=== PATIENT | female | born 1945 | race Caucasian/White ===

== ENCOUNTER → 2017-01-13 | Outpatient (CLI) | payer MEDICARE, BC ==
--- NOTE | 2017-01-13 13:55 | EST ---
DATE OF SERVICE: 01/13/17 AGE: 71Y SEX: F HT: 66" WT: 132 lbs. Protocol Skinny: X Other: Stage: 1 Dur. of Exercise: 2:59 *Heart Rate Blood Pressure *Rest: 76 Rest: 162/106 * *Max. Achieved: 139 Maximum BP: 191/77 85% PMHR: 125 100% PMHR: 147 *METS: 4.2 INDICATIONS: Abnormal EKG. MEDICATIONS: Vitamin D, Synthroid, ASA. Mrs. Sheppard is a 71-year-old female with history of about hypothyroidism, and has been having some chest discomfort. Patient was sent here for cardiac evaluation. Baseline EKG showed sinus rhythm with normal PA interval and QRS duration. Blood pressure at rest is 160/106 with pulse rate of 76. Patient walked on the Skinny protocol for about 3 minutes achieving a maximum heart rate of 139 with a blood pressure of 190/77. EKGs taken during and after the exercise did not reveal any significant changes from the baseline. Occasional PVCs were noted. FINAL IMPRESSION: 1. Limited exercise capacity. 2. Negative stress test at the level of exercise that patient achieved. 3. Patient did not complain of any chest pain or shortness of breath.
== END | disposition home or self-care (01) ==
LOC: RADNMMAIN 10:30
PROVIDERS: ATTEND Internal Medicine Geriatric Medicine
DX: R94.31 Abnormal electrocardiogram [ECG] [EKG] (principal)
CPT/HCPCS: 93017

== ENCOUNTER → 2017-02-04 | Outpatient (CLI) | payer MEDICARE, BC ==
--- NOTE | 2017-02-05 09:30 | MM ---
Reason for exam: screening (asymptomatic). Last mammogram was performed 1 year and 1 month ago. History: Patient is postmenopausal. Family history of breast cancer in maternal aunt at age 70. Excisional biopsy of the left breast, September 23, 2006. Cancelled Left Mammotome of the left breast, September 22, 2006. Taking estrogen for 16 years beginning at age 45. Physical Findings: A clinical breast exam by your physician is recommended on an annual basis and results should be correlated with mammographic findings. MG 3D Screening Mammo W/Cad Bilateral CC and MLO view(s) were taken. Prior study comparison: January 17, 2016, bilateral MG 3d diag mammo w/cad DARY. January 24, 2015, bilateral MG screening mammo w CAD. The breast tissue is heterogeneously dense. This may lower the sensitivity of mammography. Finding: There are typically benign vascular calcifications. There is no discrete abnormality. No significant changes in finding since January 17, 2016 and January 24, 2015. ASSESSMENT: Benign, BI-RAD 2 RECOMMENDATION: Routine screening mammogram of both breasts in 1 year.
== END | disposition home or self-care (01) ==
LOC: RADMAMWWP 12:58
PROVIDERS: ATTEND Obstetrics & Gynecology
DX: Z12.31 Encounter for screening mammogram for malignant neoplasm of breast (principal)
CPT/HCPCS: 77063; G0202

== ENCOUNTER → 2017-09-10 | Outpatient (CLI) | payer MEDICARE, BC ==
--- NOTE | 2017-09-10 15:30 | XR ---
EXAMINATION TYPE: XR chest 2V DATE OF EXAM: 09/10/2017 COMPARISON: NONE HISTORY: Shortness of breath TECHNIQUE: Frontal and lateral views of the chest are obtained. FINDINGS: Scattered senescent parenchymal changes noted. Hyperinflation compatible with COPD. No evidence for infiltrate. No evidence for atelectasis. Heart size is stable. Mediastinal structures are stable and grossly unremarkable. No evidence for hilar prominence. Degenerative changes dorsal spine. IMPRESSION: 1. No evidence for acute pulmonary disease.
== END | disposition home or self-care (01) ==
LOC: RADXRMAIN 15:07
PROVIDERS: ATTEND Internal Medicine Geriatric Medicine
DX: R05 Cough (principal)
CPT/HCPCS: 71046

== ENCOUNTER → 2018-02-05 | Outpatient (CLI) | payer MEDICARE, BC ==
--- NOTE | 2018-02-09 12:54 | MM ---
Reason for exam: screening (asymptomatic). Last mammogram was performed 1 year ago. History: Patient is postmenopausal. Family history of breast cancer in maternal aunt at age 70 and breast cancer in daughter at age 51. Excisional biopsy of the left breast, September 23, 2006. Cancelled Left Mammotome of the left breast, September 22, 2006. Took estrogen for 16 years beginning at age 45. Physical Findings: A clinical breast exam by your physician is recommended on an annual basis and results should be correlated with mammographic findings. MG 3D Screening Mammo W/Cad Bilateral CC and MLO view(s) were taken. Prior study comparison: February 04, 2017, bilateral MG 3d screening mammo w/cad. January 17, 2016, bilateral MG 3d diag mammo w/cad DARY. There are scattered fibroglandular densities. No significant changes when compared with prior studies. ASSESSMENT: Benign, BI-RAD 2 RECOMMENDATION: Routine screening mammogram of both breasts in 1 year.
== END | disposition home or self-care (01) ==
LOC: RADMAMWWP 10:52
PROVIDERS: ATTEND Surgery
DX: Z12.31 Encounter for screening mammogram for malignant neoplasm of breast (principal)
CPT/HCPCS: 77063; 77067

== ENCOUNTER → 2019-03-15 | Outpatient (CLI) | payer MEDICARE, BC ==
--- NOTE | 2019-03-16 09:06 | MM ---
Reason for exam: screening (asymptomatic). Last mammogram was performed 1 year and 1 month ago. History: Patient is postmenopausal. Family history of breast cancer in maternal aunt at age 70 and breast cancer in daughter at age 51. Excisional biopsy of the left breast, September 23, 2006. Cancelled Left Mammotome of the left breast, September 22, 2006. Took estrogen for 16 years beginning at age 45. Physical Findings: A clinical breast exam by your physician is recommended on an annual basis and results should be correlated with mammographic findings. MG 3D Screening Mammo W/Cad Bilateral CC and MLO view(s) were taken. Prior study comparison: February 05, 2018, bilateral MG 3d screening mammo w/cad. February 04, 2017, bilateral MG 3d screening mammo w/cad. There are scattered fibroglandular densities. No significant changes when compared with prior studies. ASSESSMENT: Benign, BI-RAD 2 RECOMMENDATION: Routine screening mammogram of both breasts in 1 year.
== END | disposition home or self-care (01) ==
LOC: RADMAMWWP 14:20
PROVIDERS: ATTEND Internal Medicine Geriatric Medicine
DX: Z12.31 Encounter for screening mammogram for malignant neoplasm of breast (principal)
CPT/HCPCS: 77063; 77067

== ENCOUNTER → 2020-04-28 | Outpatient (CLI) | payer MEDICARE, BC ==
--- NOTE | 2020-05-02 07:21 | MM ---
Reason for exam: screening (asymptomatic). Last mammogram was performed 1 year and 1 month ago. History: Patient is postmenopausal. Family history of breast cancer in maternal aunt at age 70 and breast cancer in daughter at age 51. Excisional biopsy of the left breast, September 23, 2006. Cancelled Left Mammotome of the left breast, September 22, 2006. Took estrogen for 16 years beginning at age 45. Physical Findings: A clinical breast exam by your physician is recommended on an annual basis and results should be correlated with mammographic findings. MG 3D Screening Mammo W/Cad Bilateral CC and MLO view(s) were taken. Prior study comparison: March 15, 2019, bilateral MG 3d screening mammo w/cad. February 05, 2018, bilateral MG 3d screening mammo w/cad. There are scattered fibroglandular densities. Benign appearing bilateral calcifications. No significant changes when compared with prior studies. ASSESSMENT: Benign, BI-RAD 2 RECOMMENDATION: Routine screening mammogram of both breasts in 1 year.
== END | disposition home or self-care (01) ==
LOC: RADMAMWWP 13:40
PROVIDERS: ATTEND Internal Medicine Geriatric Medicine
DX: Z12.31 Encounter for screening mammogram for malignant neoplasm of breast (principal)
CPT/HCPCS: 77063; 77067

== ENCOUNTER → 2021-05-09 | Outpatient (CLI) | payer MEDICARE, BC ==
--- NOTE | 2021-05-11 14:15 | MM ---
Reason for exam: screening (asymptomatic). Last mammogram was performed 1 year ago. History: Patient is postmenopausal. Family history of breast cancer in maternal aunt at age 70 and breast cancer in daughter at age 51. Excisional biopsy of the left breast, September 23, 2006. Cancelled Left Mammotome of the left breast, September 22, 2006. Took estrogen for 16 years beginning at age 45. Physical Findings: A clinical breast exam by your physician is recommended on an annual basis and results should be correlated with mammographic findings. MG 3D Screening Mammo W/Cad Bilateral CC and MLO view(s) were taken. Prior study comparison: April 28, 2020, bilateral MG 3d screening mammo w/cad. March 15, 2019, bilateral MG 3d screening mammo w/cad. The breast tissue is heterogeneously dense. This may lower the sensitivity of mammography. No significant changes when compared with prior studies. ASSESSMENT: Negative, BI-RAD 1 RECOMMENDATION: Routine screening mammogram of both breasts in 1 year.
== END | disposition home or self-care (01) ==
LOC: RADMAMWWP 13:38
PROVIDERS: ATTEND Internal Medicine Geriatric Medicine
DX: Z12.31 Encounter for screening mammogram for malignant neoplasm of breast (principal); Z80.3 Family history of malignant neoplasm of breast
CPT/HCPCS: 77063; 77067

== ENCOUNTER 2021-05-21 08:01 | Day surgery (SDC) | payer MEDICARE, BC ==
[~2021-05-21 08:01] MED LIST: HEPARIN SODIUM,PORCINE/PF 5,000 UNIT/0.5 ML SYRINGE SQ PRN
[2021-05-21] MEDS ORDERED: MIDAZOLAM 2 MG/2 ML VIAL IV PRN (08:03)
[2021-05-21] MEDS ORDERED: ONDANSETRON 4 MG/2 ML VIAL IVP ONE (08:03)
[2021-05-21] MEDS ORDERED: HYDROmorphone 0.5 MG/0.5 ML SYRINGE IVP PRN ×2 (08:03→11:25)
[2021-05-21] MEDS ORDERED: DEXAMETHASONE SOD PHOSPHATE 4 MG/ML 1 ML VIAL IV ONE (08:03)
[2021-05-21] MEDS: LACTATED RINGERS 1,000 ML IV SCH (08:40)
[2021-05-21 08:55] LABS: HCT 39.4 % (34.0-46.0); HGB 13.4 gm/dL (11.4-16.0); MCHC 33.9 g/dL (31.0-37.0); MCV 82.4 fL (80.0-100.0); Mean Platelet Volume 7.4; Platelet Count 185 k/uL (150-450); RBC 4.78 m/uL (3.80-5.40); RDW 13.2 % (11.5-15.5); WBC 4.7 k/uL (3.8-10.6)
[2021-05-21] MEDS ORDERED: MIDAZOLAM 2 MG/2 ML VIAL IVP ONE (09:03)
--- NOTE | 2021-05-21 09:35 | P.GSHP ---
History of Present Illness H&P Date: 05/21/21 Chief Complaint: Bilateral groin hernia 75-year-old female presented to the office 2 months ago with complaints of a bulge left groin. Present for the last 4-6 months. Also noticed recently a bulge in the right groin. Mild discomfort on the left, minimally symptomatic on the right. Left side since last seen has gotten slightly larger. No nausea or vomiting. No change in bowel habits. No previous hernias. Past Medical History Past Medical History: Thyroid Disorder History of Any Multi-Drug Resistant Organisms: None Reported Past Surgical History: Breast Surgery, Hysterectomy, Orthopedic Surgery Additional Past Surgical History / Comment(s): BREAST BIOPSY, CATARACT SURGERY,BUNIONECTOMY RIGHT FOOT, oral surg. Past Anesthesia/Blood Transfusion Reactions: No Reported Reaction Smoking Status: Never smoker - Past Family History Mother Family Medical History: CVA/TIA, Deep Vein Thrombosis (DVT) Medications and Allergies Home Medications Medication Instructions Recorded Confirmed Type Aspirin 325 mg PO DAILY 05/05/15 05/16/21 History Levothyroxine Sodium [Synthroid] 100 mcg PO DAILY 05/05/15 05/16/21 History Magnesium 200 mg PO DAILY 05/16/21 05/16/21 History Rosuvastatin Calcium [Crestor] 5 mg PO DAILY 05/16/21 05/16/21 History Allergies Allergy/AdvReac Type Severity Reaction Status Date / Time No Known Allergies Allergy Verified 05/21/21 08:25 Surgical - Exam Vital Signs Temp Pulse Resp BP Pulse Ox 97.1 F L 62 15 190/116 98 05/21/21 08:30 05/21/21 08:30 05/21/21 08:30 05/21/21 08:30 05/21/21 08:30 Physical exam: General: Well-developed, well-nourished HEENT: Normocephalic, sclerae nonicteric Abdomen: Nontender, nondistended, bilateral groin hernia left side more superior than right Extremities: No edema Neuro: Alert and oriented Results - Labs 05/21/21 08:38 Assessment and Plan (1) Inguinal hernia Narrative/Plan: 75-year-old female with bilateral groin hernia. Suspect inguinal on the left and femoral on the right. We'll proceed with laparoscopic da Olga assisted repair of bilateral groin hernia with mesh, possible open. Risks of bleeding, infection, recurrence, bladder and bowel injury, numbness, nerve injury, conversion to an open procedure were discussed with the patient. The patient understands and wishes to proceed. Current Visit: Yes Status: Acute Code(s): K40.90 - UNIL INGUINAL HERNIA, W/O OBST OR GANGR, NOT SPCF RECUR SNOMED Code(s): 992420910
[2021-05-21] MEDS ORDERED: HEPARIN SODIUM,PORCINE 5,000 UNIT/ML 1 ML VIAL ONE (09:46)
[2021-05-21] MEDS ORDERED: fentaNYL (PF) 50 MCG/ML 2 ML AMP ONE (09:46)
[2021-05-21] MEDS ORDERED: LIDOCAINE 1% INJ 10MG/ML (20 ML MDV) ONE (09:46)
[2021-05-21] MEDS ORDERED: NEOSTIGMINE 1 MG/ML 10 ML VIAL ONE (09:46)
[2021-05-21] MEDS ORDERED: SUCCINYLCHOLINE CHLORIDE 100 MG/5 ML SYR IV ONE (09:46)
[2021-05-21] MEDS ORDERED: PROPOFOL 10 MG/ML 20 ML VIAL IV ONE (09:46)
[2021-05-21] MEDS ORDERED: GLYCOPYRROLATE 0.2 MG/ML 2 ML VIAL ONE (09:46)
[2021-05-21] MEDS ORDERED: ROCURONIUM 10 MG/ML (5 ML VIAL) IV ONE (09:46)
[2021-05-21] MEDS ORDERED: BUPIVACAINE (PF) 0.5% 30 ML VIAL SQ ONE (10:16)
[2021-05-21] MEDS ORDERED: ACETAMINOPHEN TAB 325 MG TAB PO PRN (11:25)
[2021-05-21] MEDS ORDERED: ONDANSETRON 4 MG/2 ML VIAL IVP PRN (11:25)
[2021-05-21] MEDS ORDERED: traMADol 50 MG TAB PO PRN (11:25)
[2021-05-21] MEDS ORDERED: NALOXONE 0.4 MG/ML 1 ML VIAL IV PRN (11:25)
[2021-05-21] MEDS ORDERED: IBUPROFEN 400 MG TAB PO PRN (11:27)
--- NOTE | 2021-05-21 11:31 | P.OP ---
Date of Procedure: 05/21/21 Procedure(s) Performed: PREOPERATIVE DIAGNOSIS: Bilateral groin hernia (suspected inguinal on left and femoral on the right) POSTOPERATIVE DIAGNOSIS: Left indirect inguinal hernia PROCEDURE: LAPAROSCOPIC DA JOHN ASSISTED REPAIR LEFT INGUINAL HERNIA WITH MESH SURGEON: Dr. Hernandez ANESTHESIA: General OPERATIVE PROCEDURE DETAILS: Patient was placed in the operating table in the supine position. The patient was placed under general anesthesia. The abdomen was prepped and draped in usual sterile fashion. A small curvilinear supraumbilical incision was made. The fascia was retracted anteriorly with Chairsma forceps. The Veress needle was inserted. The saline drop test was normal. Insufflation took place to 15 mmHg. An 8 mm trocar was placed into the peritoneal cavity. 2 additional 8 mm trochars were placed in the right upper quadrant and left upper quadrant under visualization. The robotic arms were then brought in and docked into place. The fenestrated bipolar was used in the left arm and the laparoscopic dar was utilized in the right arm. A 30 8 mm scope was used in the up position. The peritoneal cavity was inspected. Both right and left groin were carefully inspected. The patient had an obvious defect in the indirect space on the left. No hernia was visualized on the rig ht-hand side in the direct, indirect, or femoral location. The patient's peritoneum was quite thin and I was able to see behind it quite well and could not visualize any preperitoneal fat entering any hernia either. No surgical intervention took place on the right-hand side. The left side was then addressed. The peritoneum was incised in a horizontal fashion cephalad to the internal inguinal ring. Following that careful dissection of the preperitoneal space took place. This took place using both electrocautery, sharp dissection but primarily blunt dissection. Visualization of the pubic tubercle and Lucio's ligament took place medially. Full dissection took place laterally as well. The hernia sac was fully dissected. Once we had adequate space the large Bard 3-D mid mesh was advanced into the preperitoneal space and flattened out appropriately to cover all potential hernia sites. No sutures were used. The peritoneal defect was then closed using a absorbable 2-0 VLok suture. The hernia sac was incorporated into the peritoneal closure to help prevent future recurrence. The pneumoperitoneum was then evacuated. The skin of all 3 sites was closed using a 4-0 Monocryl stitch. Skin glue was then applied. HERNIA CHARACTERISTICS: Length: 3 cm Width: 2 cm Type: Indirect left inguinal TYPE OF MESH USED: Large Bard 3-D mid mesh LOCATION OF MESH: Preperitoneal FIXATION: None DISPOSITION: Stable to recovery room
[2021-05-21] MEDS ORDERED: diphenhydrAMINE 50 MG/ML 1 ML VIAL ONE (12:26)
[2021-05-21] MEDS ORDERED: diphenhydrAMINE 50 MG/ML 1 ML VIAL IVP ONE (12:32)
[2021-05-21] MEDS ORDERED: LACTATED RINGERS 1,000 ML IV ONE (12:45)
[2021-05-21] MEDS ORDERED: hydrALAZINE HCL 25 MG TAB PO PRN (14:35)
[2021-05-21] MEDS ORDERED: ALPRAZolam 0.25 MG TAB PO PRN (14:36)
--- NOTE | 2021-05-21 14:45 | P.CONS ---
History of Present Illness - Reason for Consult Consult date: 05/21/21 Medical management Requesting physician: Osei Hernandez - Chief Complaint Post inguinal hernia repair, urgent hypertension, urinary retention and anx - History of Present Illness HISTORY OF PRESENT ILLNESS 75-year-old female one of my office patient for many years who was diagnosed with left-sided inguinal hernia recently was referred to Dr. Hernandez ended up coming for elective surgery today which was done robotically today successfully with no major complication as she was in the recovery room her blood pressure was very high patient developed urinary retention as well. Patient has Lao catheter in 1 dose of amlodipine 5 mg was giving patient be admitted to the hospital overnight. Patient is having no chest pain or angina she is not having any headache blurred vision or dizziness no palpitation. She has lost few more pounds since last time and seen her, patient was going through on oral surgery and was not able to keep anything but clear liquid for a while. REVIEW OF SYSTEMS Constitutional: No fever, no chills, no night sweats. No weight change. No weakness, fatigue or lethargy. No daytime sleepiness. EENT: No headache. No blurred vision or double vision, no loss of vision. No loss of Hearing, no ringing in the ears, no dizziness. No nasal drainage or congestion. No epistaxis. No sore throat. Lungs: No shortness of breath, cough, no sputum production. No wheezing. Cardiovascular: No chest pain, no lower extremity edema. No palpitations. No paroxysmal nocturnal dyspnea. No orthopnea. No lightheadedness or dizziness. No syncopal episodes. Positive urgent hypertension today Abdominal: No abdominal pain. No nausea, vomiting. No diarrhea. No constipation. No bloody or tarry stools.. No loss of appetite. Genitourinary: Slight urinary retention. Musculoskeletal: No myalgias. No muscle weakness, no gait dysfunction, no frequent falls. No back pain. No neck pain. Integumentary: No wounds, no lesions. No rash or pruritus. No unusual bruising. No change in hair or nails. Neurologic: No aphasia. No facial droop. No change in mentation. No head injury. No headache. No paralysis. No paresthesia. Psychiatric: No depression. No anxiety. No mood swings. Endocrine: No abnormal blood sugars. No weight change. No excessive sweating or thirst. No cold intolerance. SOCIAL HISTORY She does not smoke, she drinks alcohol socially, she is with aspirin. FAMILY HISTORY Her mom her 90s from atherosclerotic heart disease and stroke, her father dying in his 60s from CAD, patient had 1 sister who has CAD, chest 2 children with no major medical problem. PHYSICAL EXAMINATION Gen: This is a 75-year-old resting comfortably in bed does not look in any respiratory distress. HEENT: Head is atraumatic, normocephalic. Pupils equal, round. Sclerae is anicteric. NECK: Supple. No JVD. No lymphadenopathy. No thyromegaly. LUNGS: Clear to auscultation. No wheezes or rhonchi. No intercostal retractions. HEART: Regular rate and rhythm. No murmur. ABDOMEN: Incision from robotic laparoscopy [place] repair looks fine with no tenderness rebound rigidity no redness or warmness. EXTREMITIES: No pedal edema. No calf tenderness. NEUROLOGICAL: Patient is awake, alert and oriented x3. Cranial nerves 2 through 12 are grossly intact. ASSESSMENT AND PLAN 1. Post inguinal hernia repair of the left side: Stable post surgery hemodynamically stable with no major complication, pain is under control, patient was admitted to the hospital overnight for urgent hypertension was not controlled recovery. 2. Urgent hypertension: Not clear whether's reaction to anesthetic or sedation, patient was started on amlodipine 5 mg a day we will add hydralazine 25 mg every 6 hour for systolic above 150 or diastolic above 88, continue low-salt diet and smaller dose of anti-anxiety medication be use.. 3. Hypothyroidism: Continue levothyroxine 100 g daily. 4. Hyperlipidemia: On Crestor 5 mg a day resume medication. 5. Mild anxiety: Will use alprazolam 0.25 mg twice a day as needed. 6. GI prophylaxis: Start Pepcid 20 mg daily. 7. DVT prophylaxis: Early mobilization and knee-high JAMRA hose. 8. Urinary retention: Probably complication from symptom duration and anesthesia along with her hernia surgery Lao catheter was inserted will be DC first thing tomorrow morning patient to do trial to see if she can void if not will do straight cath every shift and reinsert the catheter again after few hours if needed. Dr. rodriguez thank you much for the consult [facility] any further help to please let me know. Past Medical History Past Medical History: Thyroid Disorder History of Any Multi-Drug Resistant Organisms: None Reported Past Surgical History: Breast Surgery, Hysterectomy, Orthopedic Surgery Additional Past Surgical History / Comment(s): BREAST BIOPSY, CATARACT SURGERY,BUNIONECTOMY RIGHT FOOT, oral surg. Past Anesthesia/Blood Transfusion Reactions: No Reported Reaction Past Psychological History: No Psychological Hx Reported Smoking Status: Never smoker Past Alcohol Use History: Occasional Past Drug Use History: None Reported - Past Family History Mother Family Medical History: CVA/TIA, Deep Vein Thrombosis (DVT) Medications and Allergies Home Medications Medication Instructions Recorded Confirmed Type Aspirin 325 mg PO DAILY 05/05/15 05/16/21 History Levothyroxine Sodium [Synthroid] 100 mcg PO DAILY 05/05/15 05/16/21 History Magnesium 200 mg PO DAILY 05/16/21 05/16/21 History Rosuvastatin Calcium [Crestor] 5 mg PO DAILY 05/16/21 05/16/21 History Allergies Allergy/AdvReac Type Severity Reaction Status Date / Time No Known Allergies Allergy Verified 05/21/21 08:25 Physical Exam Vitals: Vital Signs Temp Pulse Pulse Resp BP Pulse Ox 05/21/21 13:02 52 L 18 168/94 100 05/21/21 12:46 51 L 16 165/84 100 05/21/21 12:32 55 L 18 173/89 99 05/21/21 12:17 64 18 168/94 99 05/21/21 12:02 58 L 18 178/100 95 05/21/21 11:47 54 L 18 184/104 96 05/21/21 11:31 52 L 18 197/100 99 05/21/21 11:17 97.5 F L 87 16 179/111 99 05/21/21 09:43 156/80 05/21/21 08:30 97.1 F L 62 15 190/116 98 Intake and Output 05/20/21 05/21/21 05/21/21 22:59 06:59 14:59 Intake Total 1350 Output Total 605 Balance 745 Intake: IV 1350 Output: Urine 600 Estimated Blood Loss 5 Other: Weight 51.1 kg Results CBC & Chem 7: 05/21/21 08:38
[2021-05-21] MEDS: D5-0.45% NACL WITH KCL 20MEQ/L 1,000 ML IV SCH (14:58)
[2021-05-21 15:43] VITALS: BMI 19.3
[2021-05-21] MEDS: amLODIPine 5 MG TAB PO SCH (15:51)
[2021-05-21] MEDS: HEPARIN SODIUM,PORCINE/PF 5,000 UNIT/0.5 ML SYRINGE SQ SCH (15:52)
[2021-05-21] MEDS: DOCUSATE 100 MG CAP PO SCH (20:23)
[2021-05-22] MEDS: HEPARIN SODIUM,PORCINE/PF 5,000 UNIT/0.5 ML SYRINGE SQ SCH ×2 (00:55→08:42)
[2021-05-22 01:55] VITALS: RESP 16
[2021-05-22] MEDS: D5-0.45% NACL WITH KCL 20MEQ/L 1,000 ML IV SCH (05:45)
[2021-05-22] MEDS ORDERED: LEVOTHYROXINE 100 MCG TAB PO SCH (06:30)
[2021-05-22 08:36] VITALS: BP 123/71; PULSE 60; TEMP 97.7
[2021-05-22] MEDS: DOCUSATE 100 MG CAP PO SCH (08:42)
[2021-05-22] MEDS: amLODIPine 5 MG TAB PO SCH (08:43)
[2021-05-22] MEDS ORDERED: ATORVASTATIN 10 MG TAB PO SCH (09:00)
[2021-05-22] MEDS ORDERED: MAGNESIUM OXIDE 400 MG TAB PO SCH (09:00)
[2021-05-22] MEDS: LACTATED RINGERS 1,000 ML IV SCH (09:59)
--- NOTE | 2021-05-22 12:29 | P.DS ---
<Judy Blanc - Last Filed: 05/22/21 12:26> Providers Expected date of discharge: 05/22/21 Hospital Course: Discharge diagnosis 1. Left indirect inguinal hernia status post laparoscopic da Olga-assisted repair of left inguinal hernia with mesh Hospital course 75-year-old female presented to the office 2 months ago with complaints of a bulge left groin. Present for the last 4-6 months. Also noticed recently a bulge in the right groin. Mild discomfort on the left, minimally symptomatic on the right. Patient is status post laparoscopic da Olga-assisted repair of left inguinal hernia with mesh. Patient tolerated surgery well. She denies any pain. Denies any nausea or vomiting. She is tolerating diet. She did have a small smear of the bowel movement. She is urinating without difficulty. She is afebrile. She is up and ambulating. Medicine service has added blood pressure medication for her elevated blood pressures. Patient's incision sites are clean dry and intact. She does have minimal bruising around the incision at the umbilicus. She is stable for discharge. Physician Firearms Instructor note has been reviewed by physician. Signing provider agrees with the documented findings, assessment, and plan of care. Patient Condition at Discharge: Good Plan - Discharge Summary Discharge Rx Participant: Yes New Discharge Prescriptions: New Docusate [Colace] 100 mg PO BID cap amLODIPine [Norvasc] 5 mg PO DAILY #30 tab Acetaminophen Tab [Tylenol Tab] 650 mg PO Q4H PRN #30 tablet PRN Reason: Pain Continue Levothyroxine Sodium [Synthroid] 100 mcg PO DAILY Aspirin 325 mg PO DAILY Rosuvastatin Calcium [Crestor] 5 mg PO DAILY Magnesium 200 mg PO DAILY Discharge Medication List Aspirin 325 mg PO DAILY 05/05/15 [History] Levothyroxine Sodium [Synthroid] 100 mcg PO DAILY 05/05/15 [History] Magnesium 200 mg PO DAILY 05/16/21 [History] Rosuvastatin Calcium [Crestor] 5 mg PO DAILY 05/16/21 [History] Acetaminophen Tab [Tylenol Tab] 650 mg PO Q4H PRN #30 tablet 05/22/21 [Rx] Docusate [Colace] 100 mg PO BID cap 05/22/21 [Rx] amLODIPine [Norvasc] 5 mg PO DAILY #30 tab 05/22/21 [Rx] Follow up Appointment(s)/Referral(s): Osei Hernandez MD [Medical Doctor] - 05/30/21 11:30 am Denzel Anderson MD [Primary Care Provider] - 05/29/21 11:30 am (monitor BP at home) Activity/Diet/Wound Care/Special Instructions: Continue regular diet as tolerated. fluids are encouraged. Continue taking the prescribed blood pressure medication as prescribed until you follow up with Dr. Anderson next week. No lifting pushing or pulling over 10 pounds You may shower. No soaking or tub baths for 2 weeks Very light activity until you are reevaluated at your follow up appointment with your surgeon. Call physician with any questions comments concerns worsening returning symptoms, fever 101.1 or higher, not tolerating diet or fluids, pain not controlled by medications prescribed to you. Discharge Disposition: HOME SELF-CARE <Osei Hernandez - Last Filed: 05/22/21 13:12> Providers Attending physician: Osei Hernandez Consults: 05/21/21 11:25 Consult Physician Routine Consulting Provider: Denzel Anderson Consult Reason/Comments: Medical management Do you want consulting provider notified?: Yes Primary care physician: Denzel Anderson - Discharge Diagnosis(es) (1) Inguinal hernia Status: Acute
--- NOTE | 2021-05-25 07:57 | P.PN ---
Subjective Progress Note Date: 05/22/21 HISTORY OF PRESENT ILLNESS 75-year-old female one of my office patient for many years who was diagnosed with left-sided inguinal hernia recently was referred to Dr. Henrandez ended up coming for elective surgery today which was done robotically today successfully with no major complication as she was in the recovery room her blood pressure was very high patient developed urinary retention as well. Patient has Lao catheter in 1 dose of amlodipine 5 mg was giving patient be admitted to the hospital overnight. Patient is having no chest pain or angina she is not having any headache blurred vision or dizziness no palpitation. She has lost few more pounds since last time and seen her, patient was going through on oral surgery and was not able to keep anything but clear liquid for a while. 05/22: Patient has been afebrile, heart rate 60, blood pressure 123/71, pulse ox 99% on room air. Patient was started on Norvasc blood pressure has been well controlled overnight. She is expecting discharge home today once seen by Dr. Hernandez. Medication reconciliation has been completed. Patient may follow-up in the office in a week and recommend monitoring blood pressure. REVIEW OF SYSTEMS Constitutional: No fever, no chills, no night sweats. No weight change. No weakness, fatigue or lethargy. No daytime sleepiness. EENT: No headache. No blurred vision or double vision, no loss of vision. No loss of Hearing, no ringing in the ears, no dizziness. No nasal drainage or congestion. No epistaxis. No sore throat. Lungs: No shortness of breath, cough, no sputum production. No wheezing. Cardiovascular: No chest pain, no lower extremity edema. No palpitations. No paroxysmal nocturnal dyspnea. No orthopnea. No lightheadedness or dizziness. No syncopal episodes. Positive urgent hypertension today Abdominal: No abdominal pain. No nausea, vomiting. No diarrhea. No constipation. No bloody or tarry stools.. No loss of appetite. Genitourinary: Slight urinary retention. Musculoskeletal: No myalgias. No muscle weakness, no gait dysfunction, no frequent falls. No back pain. No neck pain. Integumentary: No wounds, no lesions. No rash or pruritus. No unusual bruising. No change in hair or nails. Neurologic: No aphasia. No facial droop. No change in mentation. No head injury. No headache. No paralysis. No paresthesia. Psychiatric: No depression. No anxiety. No mood swings. Endocrine: No abnormal blood sugars. No weight change. PHYSICAL EXAMINATION Gen: This is a 75-year-old female resting in recliner and appears to be in no acute distress. HEENT: Head is atraumatic, normocephalic. Pupils equal, round. Sclerae is anicteric. NECK: Supple. No JVD. No lymphadenopathy. No thyromegaly. LUNGS: Clear to auscultation. No wheezes or rhonchi. No intercostal retractions. HEART: Regular rate and rhythm. No murmur. ABDOMEN: Incision from robotic laparoscopic Da Olga repair looks fine with no tenderness rebound rigidity no redness or warmness. EXTREMITIES: No pedal edema. No calf tenderness. NEUROLOGICAL: Patient is awake, alert and oriented x3. Cranial nerves 2 through 12 are grossly intact. ASSESSMENT AND PLAN 1. Post inguinal hernia repair of the left side: Stable post surgery hemodynamically stable with no major complication, pain is under control, p opalient was admitted to the hospital overnight for urgent hypertension was not controlled recovery. 2. Urgent hypertension: Not clear whether's reaction to anesthetic or sedation, patient was started on amlodipine 5 mg a day we will add hydralazine 25 mg every 6 hour for systolic above 150 or diastolic above 88, continue low-salt diet and smaller dose of anti-anxiety medication be use.. 3. Hypothyroidism: Continue levothyroxine 100 g daily. 4. Hyperlipidemia: On Crestor 5 mg a day resume medication. 5. Mild anxiety: Will use alprazolam 0.25 mg twice a day as needed. 6. GI prophylaxis: Start Pepcid 20 mg daily. 7. DVT prophylaxis: Early mobilization and knee-high JAMAR hose. 8. Urinary retention: Probably complication from symptom duration and anesthesia along with her hernia surgery Lao catheter was inserted will be DC first thing tomorrow morning patient to do trial to see if she can void if not will do straight cath every shift and reinsert the catheter again after few hours if needed. 9. Hypertension. Patient started on Norvasc. Dr. Hernandez, thank you much for the consultation and if I can be of any further help please let me know. DISCHARGE PLAN Home Impression and plan of care have been directed as dictated by the signing physician. Xi Ling nurse practitioner acting as scribe for signing physician. Objective - Vital Signs Vital signs: Vital Signs Temp 97.7 F 05/22/21 07:45 Pulse 60 05/22/21 07:45 Resp 16 05/22/21 07:45 BP 123/71 05/22/21 07:45 Pulse Ox 99 05/22/21 07:45 Intake & Output 05/21/21 05/22/21 05/22/21 18:59 06:59 18:59 Intake Total 1350 750 Output Total 2225 1600 Balance -875 -850 Weight 51.1 kg Intake: IV 1350 Intake, IV Titration 750 Amount D5-0.45% NaCl with KCl 750 20Meq/l 1,000 ml @ 75 mls /hr IV .[id number] [facility] Rx#: [id number] Output: Urine 2220 1600 Estimated Blood Loss 5 Other: Voiding Method Indwelling Catheter # Voids 1 - Labs CBC & Chem 7: 05/21/21 08:38
== END 2021-05-22 12:43 | disposition home or self-care (01) ==
LOC: OR 08:01 → 6PED 12:28 → OR 05-22 12:43
PROVIDERS: ATTEND Surgery
DX: K40.90 Unilateral inguinal hernia, without obstruction or gangrene, not specified as recurrent (principal); E78.5 Hyperlipidemia, unspecified; F41.9 Anxiety disorder, unspecified; E03.9 Hypothyroidism, unspecified; I10 Essential (primary) hypertension; R03.0 Elevated blood-pressure reading, without diagnosis of hypertension; R33.9 Retention of urine, unspecified; Z79.82 Long term (current) use of aspirin; Z79.899 Other long term (current) drug therapy; Z79.890 Hormone replacement therapy; Z90.710 Acquired absence of both cervix and uterus; Z82.49 Family history of ischemic heart disease and other diseases of the circulatory system; Z82.3 Family history of stroke; Z83.2 Family history of diseases of the blood and blood-forming organs and certain disorders involving the immune mechanism
CPT/HCPCS: 49650; 85027; 87635; C1781; J2250; J1200; J1644 ×3; J1100; J2710; J0690; J2405; J2001; J3010; J0330; J2704; J1170

== ENCOUNTER → 2021-12-22 | Outpatient (CLI) | payer MEDICARE, BC | END | disposition home or self-care (01) | LOC: LABWHC1 09:15 | PROVIDERS: ATTEND Psychiatry & Neurology Neurology | DX: Z00.00 Encounter for general adult medical examination without abnormal findings (principal) | CPT/HCPCS: 36415; 82306; 82607; 85652; 86038 ==

== ENCOUNTER → 2021-12-28 | Outpatient (CLI) | payer MEDICARE, BC ==
--- NOTE | 2021-12-28 14:43 | MR ---
MR brain without contrast HISTORY: G 46.3 Multiplanar multisequence imaging through the brain, no comparisons There is no restricted diffusion. Cortical atrophy is present. Periventricular and subcortical conflu ent and scattered hyperintensities are noted on inversion recovery and T2-weighted sequences. There i s no hemorrhage or hydrocephalus. The corpus callosum, cervical medullary junction are within normal limits. Degenerative disc changes are noted in the upper cervical spine. There is a partially empty s papito. Prominent CSF fluid space in the posterior fossa may represent negative cisterna magna rather t panchal arachnoid cyst. The orbits show symmetric appearance. Paranasal sinuses are well aerated. Cerebel lopontine angles are unremarkable. There are expected vascular flow voids. There is some inflammatory change present in the left maxillary sinus IMPRESSION: Age-related changes of cortical atrophy and small vessel ischemia. Sinus disease
== END | disposition home or self-care (01) ==
LOC: RADMRIMAIN 09:05
PROVIDERS: ATTEND Psychiatry & Neurology Neurology
DX: G46.3 Brain stem stroke syndrome (principal)
CPT/HCPCS: 70551

== ENCOUNTER → 2022-05-16 | Outpatient (CLI) | payer MEDICARE, BC ==
--- NOTE | 2022-05-17 19:24 | MM ---
Reason for Exam: Screening (asymptomatic). Last screening mammogram was performed 12 month(s) ago. Patient History: Menarche at age 10. First Full-Term at age 16. Left ovary removed at age 32. Right ovary removed at age 32. Hysterectomy at age 32. Postmenopausal. Estrogen, starting at age 45 for 16 years. 09/23/2006, Excisional Biopsy on the Left side. 09/22/2006, Cancelled Left Mammotome on the left side. Maternal aunt had breast cancer, age 70. Daughter had breast cancer, age 51. Risk Values: Lizzy 5 year model risk: 3.2%. NCI Lifetime model risk: 5.7%. Prior Study Comparison: 03/15/2019 Bilateral Screening Mammogram, [facility]. 04/28/2020 Bilateral Screening Mammogram, [facility]. 05/09/2021 Bilateral Screening Mammogram, [facility]. Tissue Density: The breast tissue is heterogeneously dense. This may lower the sensitivity of mammography. Findings: Analyzed By CAD. There is no suspicious group of microcalcifications or new suspicious mass in either breast. Overall Assessment: Negative, BI-RAD 1 Management: Screening Mammogram of both breasts in 1 year. A clinical breast exam by your physician is recommended on an annual basis and results should be correlated with mammographic findings. Electronically signed and approved by: Edmond Hartley DO
== END | disposition home or self-care (01) ==
LOC: RADMAMWWP 16:27
PROVIDERS: ATTEND Internal Medicine Geriatric Medicine
DX: Z12.31 Encounter for screening mammogram for malignant neoplasm of breast (principal)
CPT/HCPCS: 77063; 77067

== ENCOUNTER → 2022-06-03 | Outpatient (CLI) | payer MEDICARE, BC ==
--- NOTE | 2022-06-04 06:50 | BD ---
EXAMINATION TYPE: Axial Bone Density DATE OF EXAM: 06/03/2022 COMPARISON: DEXA bone scan 2013 CLINICAL HISTORY: 76 years year old Female. ICD-10 CODE: M81.0 AGE-RELATED OSTEOPOROSIS W/O CURRENT PATHOLO Height: 62 Weight: 108.5 FRAX RISK QUESTIONS: Alcohol (3 or more units per day): NO Family History (Parent hip fracture): MOTHER Glucocorticoids (More than 3mos): NO History of Fracture in Adulthood: NO Secondary Osteoporosis: 1. Type 1 Diabetes: NO 2. Hyperthyroidism: NO 3. Menopause before 45: YES 4. Malnutrition: SLIGHT IN STATURE 5. Chronic liver disease: NO Rheumatoid Arthritis: NO Current Tobacco Use: NO RISK FACTORS HISTORY OF: Hip Fracture (Right/Left): NO Spine Fracture: NO History of Wrist Fracture: NO Surgery to Spine/Hip(right/left)/Wrist (right/left): NO Family History of Osteoporosis: YES Active: YES Diet low in dairy products/other sources of calcium: NO Postmenopausal woman: YES Take estrogen and/or progesterone medications: NO Lost more than 2 inches in height since high school: YES Frequent falls: NO Poor Health: NO Hyperparathyroidism: NO Adrenal Insufficiency: NO MEDICATIONS: Prednisone or other steroids: NO Thyroid Medications: NO Osteoporosis Medications: NO Additional Medications: VIT D, CALCIUM, PT IS NOT SURE OF PRESCRIPTION MEDS Additional History: EXAM MEASUREMENTS: Bone mineral densitometry was performed using the [employer] System. Bone mineral density as measured about the Lumbar spine is: ----- L1-L4(G/cm2):0.800 T Score Values are as follows: ----- L1: -3.1 ----- L2: -3.4 ----- L3: -2.8 ----- L4: -3.2 ----- L1-L4: -3.2 Bone mineral density has: DECREASED 31.6 % since study of: 05/11/2014 Bone mineral density about the R hip (g/cm2): 0.762 Bone mineral density about the L hip (g/cm2): 0.726 T Score values are as follows: -----R Neck: -2.0 -----L Neck: -2.2 -----R Total: -2.8 -----L Total: -3.1 Bone mineral density has: DECREASED 24.4% % since study of: FRAX%s: The graph provided illustrates a 27.7% chance for a major osteoporotic fx and a 18.9% chance for the hips probability for fx in 10 years time. IMPRESSION: Osteoporosis (T Score less than -2.5) now seen. There is increased fracture risk and therapy is usually indicated based on age. Re-Screen 1-2 years. NOTE: T-SCORE=SD OF THE YOUNG ADULT MEAN.
== END | disposition home or self-care (01) ==
LOC: RADBDWWP 16:22
PROVIDERS: ATTEND Internal Medicine Geriatric Medicine
DX: M81.0 Age-related osteoporosis without current pathological fracture (principal)
CPT/HCPCS: 77080

== ENCOUNTER → 2022-06-03 | Outpatient (CLI) | payer MEDICARE, BC ==
--- NOTE | 2022-06-04 05:53 | XR ---
EXAMINATION TYPE: XR lumbar spine 2 or 3V DATE OF EXAM: 06/03/2022 CLINICAL HISTORY: Low back pain. TECHNIQUE: Frontal and lateral images of the lumbar spine are obtained. COMPARISON: None FINDINGS: There are 5 lumbar type vertebral bodies identified. There is dextroconvex scoliosis cente red at L2 level with reactive levoconvex scoliosis centered at lumbosacral junction. Alignment is str aightened on the lateral images with grade 1 anterolisthesis L4 on L5. Vertebral body heights are malcolm ntained. Moderate disc space narrowing with vacuum disc phenomenon at L4-L5 level. Moderate disc spac e narrowing L5-S1 level. Mild to moderate disc space narrowing at L2-L3 level with vacuum disc phenom enon. Mild overlying arterial vascular calcification is present. IMPRESSION: As above.
--- NOTE | 2022-06-04 05:55 | XR ---
EXAMINATION TYPE: XR thoracic spine 2V DATE OF EXAM: 06/03/2022 CLINICAL HISTORY: Dorsalis unspecified. TECHNIQUE: Frontal, lateral, and swimmer's view of thoracic spine are obtained. COMPARISON: None. FINDINGS: Thoracic spine show slight scoliotic curvature and frontal images with some exaggerated tho racic kyphosis upper to mid thoracic spine on lateral images. Mild multilevel disc space narrowing in the upper to mid thoracic spine. Osseous structures somewhat demineralized. Vertebral body heights a re preserved. Visualized ribs are intact bilaterally. IMPRESSION: As above.
== END | disposition home or self-care (01) ==
LOC: RADXRMAIN 16:54
PROVIDERS: ATTEND Internal Medicine Geriatric Medicine
DX: M54.9 Dorsalgia, unspecified (principal)
CPT/HCPCS: 72070; 72100

== ENCOUNTER → 2022-12-30 | Outpatient (CLI) | payer MEDICARE, BC ==
[2022-12-30 17:04] LABS: Basophils # (A) 0.04 X 10*3/uL (0.00-0.10); Basophils % (A) 0.8 %; Eosinophils # (A) 0.09 X 10*3/uL (0.04-0.35); Eosinophils % (A) 1.7 %; HGB 12.3 g/dL (12.0-15.0); Immature Grans, Automated 0.2 %; Lymphocytes # (A) 1.21 X 10*3/uL (0.90-5.00); MCH 25.7 pg (27.0-32.0); MCV 85.8 fL (80.0-97.0); Mean Platelet Volume 10.5 fL (9.5-12.2); Monocytes # (A) 0.45 X 10*3/uL (0.20-1.00); Monocytes % (A) 8.6 %; NRBC Per 100 WBC 0 /100 WBCS (0.0-0.0); Neutrophils # (A) 3.46 X 10*3/uL (1.80-7.70); Neutrophils % (A) 65.7 %; Platelet Count 251 X 10*3/uL (140-440); RBC 4.78 X 10*6/uL (4.10-5.20); WBC 5.26 X 10*3/uL (4.50-10.00)
[2022-12-30 17:19] LABS: ALT 15 U/L (8-44); AST 22 U/L (13-35); African American GFR (CKD) 76.1 (60.0-200.0); Albumin 4.2 g/dL (3.8-4.9); Albumin/Globulin Ratio 2.13 (1.60-3.17); Alkaline Phosphatase 66 U/L (41-126); BUN/Creat Ratio 28.64 Ratio (12.00-20.00); Blood Urea Nitrogen 24.2 mg/dL (9.0-27.0); Calcium 9.8 mg/dL (8.7-10.3); Carbon Dioxide 29.5 mmol/L (20.0-27.5); Chloride 105 mmol/L (96-109); Chol/HDL Ratio 1.82 Ratio; Glucose 95 mg/dL (70-110); LDL Cholesterol,Calculated 70.2 mg/dL (0.0-131.0); Non-African American GFR(CKD) 65.6 (60.0-200.0); Potassium 4.8 mmol/L (3.5-5.5); Sodium 143 mmol/L (135-145); Total Protein 6.2 g/dL (6.2-8.2); VLDL Calculation 12.78 mg/dL (5.00-40.00)
== END | disposition home or self-care (01) ==
LOC: LABWHC1 08:51
PROVIDERS: ATTEND Internal Medicine Geriatric Medicine
DX: Z00.00 Encounter for general adult medical examination without abnormal findings (principal); E78.5 Hyperlipidemia, unspecified; E03.9 Hypothyroidism, unspecified
CPT/HCPCS: 36415; 80053; 80061; 84439; 84443; 85025

== ENCOUNTER 2023-06-12 19:13 | Emergency (ER) | payer MEDICARE, BC ==
[2023-06-12 19:29] VITALS: PULSE 72; TEMP 98
[2023-06-12] MEDS ORDERED: DIPH,PERTUS(ACELL)TETVAC-LF 0.5 ML VIAL IM ONE (20:15)
[2023-06-12] MEDS ORDERED: LIDOCAINE 1% INJ 10MG/ML (20 ML MDV) SQ ONE (20:15)
--- NOTE | 2023-06-12 20:25 | CT ---
EXAMINATION TYPE: CT brain manisha wo con DATE OF EXAM: 06/12/2023 COMPARISON: None HISTORY: 77-year-old female pain after Fall, laceration to superior right eyebrow CT DLP: 1251.6 mGycm Automated exposure control for dose reduction was used. Technique: Examination of the head was done in axial plane without intravenous contrast. Coronal and sagittal reconstructions performed. CT of the cervical spine was obtained in axial plane without intravenous injection of contrast mater ial. Coronal and sagittal reformatted images were obtained from the axial views for evaluation of f ractures, spinal alignment and canal. FINDINGS: Head: There is no evidence of acute intracranial hemorrhage, acute ischemic changes, mass, mass-effect, or extra-axial fluid collection. There is no effacement of cerebral sulci or basal subarachnoid cister ns. There is no hydrocephalus. There is no midline shift. Victoria-white matter distinction is preserv ed. Partially empty sella and magna cisterna magna. Mild ventriculomegaly likely due to central cerebral atrophy. There is mild right supraorbital soft tissue swelling. Underlying orbits and globes and paranasal sin uses as well as mastoid air cells appear clear. Cervical spine: There is severe degenerative change of the TMJs. No craniocervical junction abnormality, predental sp priya widening, or prevertebral soft tissue swelling. There is degenerative change of the C1 dens artic ulation. Moderate spondylotic change throughout. Degenerative grade 1 anterolisthesis C4-C5. Additional grade 1 anterolisthesis C7-T1, T1-T2, and T2-T3. Grade 1 retrolisthesis C5-C6. No evident canal compromise by CT. No acute fracture of the cervical spine. There is variable mild and moderate neuroforaminal stenoses throughout. Sagittal and coronal reformatted images confirm above findings. COMBINED IMPRESSION: 1. Right supraorbital soft tissue swelling. No acute intracranial abnormality seen. Mild central cere bral atrophy. 2. No acute fracture of the cervical spine. Moderate multilevel spondylotic change with degenerative grade 1 spondylolisthesis at multiple levels as above. 3. Very severe bilateral TMJ OA.
--- NOTE | 2023-06-12 20:32 | ED ---
General Adult HPI - General Chief complaint: Skin/Abscess/Foreign Body Stated complaint: Fall Time Seen by Provider: 06/12/23 19:22 Source: family Mode of arrival: wheelchair Limitations: no limitations - History of Present Illness Initial comments: 77-year-old female presents emergency department chief complaint of fall. Patient states that she was walking in the garage earlier today when she missed a small step causing her to fall forward and hit her face on a step in the garage. She states that she did not lose consciousness. Denies blood thinners. She is unsure when her last tetanus vaccination was. Denies any other injury. She has been ambulatory since this incident. - Related Data Home Medications Medication Instructions Recorded Confirmed Aspirin 325 mg PO DAILY 05/05/15 05/16/21 Levothyroxine Sodium [Synthroid] 100 mcg PO DAILY 05/05/15 05/16/21 Magnesium 200 mg PO DAILY 05/16/21 05/16/21 Rosuvastatin Calcium [Crestor] 5 mg PO DAILY 05/16/21 05/16/21 Previous Rx's Medication Instructions Recorded Acetaminophen Tab [Tylenol Tab] 650 mg PO Q4H PRN #30 tablet 05/22/21 Docusate [Colace] 100 mg PO BID cap 05/22/21 amLODIPine [Norvasc] 5 mg PO DAILY #30 tab 05/22/21 Allergies Allergy/AdvReac Type Severity Reaction Status Date / Time No Known Allergies Allergy Verified 06/12/23 19:20 Review of Systems ROS Statement: Those systems with pertinent positive or pertinent negative responses have been documented in the HPI. ROS Other: All systems not noted in ROS Statement are negative. Past Medical History Past Medical History: Thyroid Disorder History of Any Multi-Drug Resistant Organisms: None Reported Past Surgical History: Breast Surgery, Hysterectomy, Orthopedic Surgery Additional Past Surgical History / Comment(s): BREAST BIOPSY, CATARACT SURGERY,BUNIONECTOMY RIGHT FOOT, Past Anesthesia/Blood Transfusion Reactions: No Reported Reaction Past Psychological History: No Psychological Hx Reported Smoking Status: Never smoker Past Alcohol Use History: Occasional Past Drug Use History: None Reported - Past Family History Mother Family Medical History: CVA/TIA, Deep Vein Thrombosis (DVT) General Exam Limitations: no limitations General appearance: alert, in no apparent distress Head exam: Present: normocephalic, other (5cm laceration above right eyebrow) Eye exam: Present: normal appearance, PERRL, EOMI. Absent: scleral icterus, conjunctival injection, periorbital swelling ENT exam: Present: normal exam, mucous membranes moist Neck exam: Present: normal inspection. Absent: tenderness, meningismus, lymphadenopathy Respiratory exam: Present: normal lung sounds bilaterally. Absent: respiratory distress, wheezes, rales, rhonchi, stridor Cardiovascular Exam: Present: regular rate, normal rhythm, normal heart sounds. Absent: systolic murmur, diastolic murmur, rubs, gallop, clicks GI/Abdominal exam: Present: soft, normal bowel sounds. Absent: distended, tenderness, guarding, rebound, rigid Extremities exam: Present: normal inspection, full ROM, normal capillary refill. Absent: tenderness, pedal edema, joint swelling, calf tenderness Back exam: Present: normal inspection Neurological exam: Present: alert, oriented X3, CN II-XII intact, normal gait Psychiatric exam: Present: normal affect, normal mood Skin exam: Present: warm, dry, intact, normal color. Absent: rash Course Vital Signs 06/12/23 06/12/23 19:18 21:57 Temperature 98 F Pulse Rate 72 72 Respiratory 18 16 Rate Blood Pressure 175/97 151/76 O2 Sat by Pulse 100 98 Oximetry Procedures - Laceration Laceration #1 Consent Obtained: verbal consent Indication: laceration Site: face Size (cm): 5 Description: linear Depth: simple, single layer Anesthetic Used: lidocaine 1% Anesthesia Technique: local infiltration Pre-repair: wound explored Type of Sutures: other Size of Sutures: 6-0 Technique: simple, interrupted Patient Tolerated Procedure: well, no complications Medical Decision Making - Medical Decision Making Was pt. sent in by a medical professional or institution (, PA, PROFESSOR/NURSE ANESTHETIST, urgent care, hospital, or group home...) When possible be specific @ -No Did you speak to anyone other than the patient for history (EMS, parent, family, police, friend...)? What history was obtained from this source @ -No Did you review nursing and triage notes (agree or disagree)? Why? @ -I reviewed and agree with nursing and triage notes Were old charts reviewed (outside hosp., previous admission, EMS record, old EKG, old radiological studies, urgent care reports/EKG's, group home records)? Report findings @ -No old charts were reviewed Differential Diagnosis (chest pain, altered mental status, abdominal pain women, abdominal pain men, vaginal bleeding, weakness, fever, dyspnea, syncope, headache, dizziness, GI bleed, back pain, seizure, CVA, palpatations, mental health, musculoskeletal)? @ -laceration, abrasion, fracture, head injury, intracranial hemorrhage, this list is not all inclusive EKG interpreted by me (3pts min.). @ -none X-rays interpreted by me (1pt min.). @ -None done CT interpreted by me (1pt min.). @ -CT brain and cspine shows no evidence of acute intracranial process, no acute fracture U/S interpreted by me (1pt. min.). @ -None done What testing was considered but not performed or refused? (CT, X-rays, U/S, labs)? Why? @ -None What meds were considered but not given or refused? Why? @ -None Did you discuss the management of the patient with other professionals (professionals i.e. , PA, PROFESSOR/NURSE ANESTHETIST, lab, RT, psych nurse, social scientist, meteorologist in charge, teacher, search and rescue officer, nurse outreach case manager)? Give summary @ -No Was smoking cessation discussed for >3mins.? @ -No Was critical care preformed (if so, how long)? @ -No Were there social determinants of health that impacted care today? How? (Homelessness, low income, unemployed, alcoholism, drug addiction, transportation, low edu. Level, literacy, decrease access to med. care, residential, rehab)? @ -No Was there de-escalation of care discussed even if they declined (Discuss DNR or withdrawal of care, Hospice)? DNR status @ -No What co-morbidities impacted this encounter? (DM, HTN, Smoking, COPD, CAD, Cancer, CVA, ARF, Chemo, Hep., AIDS, mental health diagnosis, sleep apnea, morbid obesity)? @ -None Was patient admitted / discharged? Hospital course, mention meds given and route, prescriptions, significant lab abnormalities, going to OR and other pertinent info. @ -Discharge. 77-year-old female presents emergency Department with chief complaint of mechanical fall in which she tripped in the garage causing her to hit her face on the stairs. She did not lose consciousness denies blood thinners. CT brain and cspine shows no evidence of acute intracranial process, no acute fracture. patient is moving all extremities freely, ambulating to the restroom without difficulty. Laceration above right eyebrow about 5 cm explored and repaired. Patient will be discharged home in stable condition. Case discussed with Dr. Rausch Undiagnosed new problem with uncertain prognosis? @ -No Drug Therapy requiring intensive monitoring for toxicity (Heparin, Nitro, Insulin, Cardizem)? @ -No Were any procedures done? @ -No Diagnosis/symptom? @ -mechanical fall Acute, or Chronic, or Acute on Chronic? @ -acute Uncomplicated (without systemic symptoms) or Complicated (systemic symptoms)? @ -uncomplicated Side effects of treatment? @ -No Exacerbation, Progression, or Severe Exacerbation? @ -No Poses a threat to life or bodily function? How? (Chest pain, [place], [place], pneumonia, PE, COPD, DKA, ARF, appy, cholecystitis, CVA, Diverticulitis, Homicidal, Suicidal, threat to staff... and all critical care pts) @ -No Disposition Clinical Impression: Laceration, Head injury Disposition: HOME SELF-CARE Condition: Stable Instructions (If sedation given, give patient instructions): Care For Your Stitches (ED) Additional Instructions: Please follow up with your primary care provider in around 5 days for stitch evaluation. Return to the emergency department for new or worsening symptoms. Is patient prescribed a controlled substance at d/c from ED?: No Referrals: Denzel Anderson MD [Primary Care Provider] - 1-2 days
[2023-06-12 22:01] VITALS: BP 151/76; RESP 16
== END 2023-06-12 21:58 | disposition home or self-care (01) ==
LOC: EC 19:13
DX: S01.111A Laceration without foreign body of right eyelid and periocular area, initial encounter (principal); E07.9 Disorder of thyroid, unspecified; Z79.890 Hormone replacement therapy; Z79.82 Long term (current) use of aspirin; Z23 Encounter for immunization; W10.9XXA Fall (on) (from) unspecified stairs and steps, initial encounter
CPT/HCPCS: 72125; 70450; 90715; 99283; 12013; 90471; J2001

== ENCOUNTER → 2024-06-28 | Outpatient (CLI) | payer MEDICARE, BC ==
--- NOTE | 2024-06-29 10:59 | MM ---
Reason for Exam: Screening (asymptomatic). Last mammogram was performed 1 year(s) and 1 month(s) ago. Patient History: Menarche at age 10. First Full-Term at age 16. Left ovary removed at age 32. Right ovary removed at age 32. Hysterectomy at age 32. Postmenopausal. Estrogen, starting at age 45 for 16 years. 09/23/2006, Excisional Biopsy on the Left side. 09/22/2006, Cancelled Left Mammotome on the left side. Maternal aunt had breast cancer, age 70. Daughter had breast cancer, age 51. Risk Values: Lizzy 5 year model risk: 3.6%. NCI Lifetime model risk: 5.5%. Prior Study Comparison: 05/09/2021 Bilateral Screening Mammogram, [facility]. 05/16/2022 Bilateral MG 3D screening mammo w/cad, [facility]. 05/30/2023 Bilateral MG 3D screening mammo w/cad, [facility]. Tissue Density: The breasts are heterogeneously dense, which may obscure small masses. Findings: Analyzed By CAD. Benign bilateral vascular calcifications. There is no suspicious group of microcalcifications or new suspicious mass in either breast. Overall Assessment: Benign, BI-RAD 2 Management: Screening Mammogram of both breasts in 1 year. See note below in regards to patient's increased 5 year Lizzy score. Patient should continue monthly self-breast exams. A clinical breast exam by your physician is recommended on an annual basis. This exam should not preclude additional follow-up of suspicious palpable abnormalities. Note on Lizzy scores and lifetime risk: 1. A Lizzy score greater than 3% is considered moderate risk. If this is the case, consider specialist referral to assess eligibility for a risk reducing agent. 2. If overall lifetime risk for the development of breast cancer is 20% or higher, the patient may qualify for future screening with alternating mammogram and breast MRI. [facility], , 06/29/2024 10:56 AM. Electronically signed and approved by: Keagan Pinto M.D. Radiologist
--- NOTE | 2024-06-29 17:37 | BD ---
EXAMINATION TYPE: Axial Bone Density DATE OF EXAM: 06/28/2024 CLINICAL HISTORY: 78 years old Female. ICD-10 CODE: M81.0 AGE-RELATED OSTEOPOROSIS W/ , Z78.0 Height: 62 Weight: 108 FRAX RISK QUESTIONS: Family History (Parent hip fracture): yes History of Fracture in Adulthood: yes Secondary Osteoporosis: yes 3. Menopause before 45: yes RISK FACTORS HISTORY OF: Surgery to Spine/Hip(right/left)/Wrist (right/left): no MEDICATIONS: Thyroid Medications: no Osteoporosis Medications: no EXAM MEASUREMENTS: Bone mineral densitometry was performed using the [employer] System. Bone mineral density as measured about the Lumbar spine is: ----- L1-L4(G/cm2): 1.024 T Score Values are as follows: ----- L1: -2.3 ----- L2: -1.0 ----- L3: -0.1 ----- L4: -1.9 ----- L1-L4: -1.3 Z Score Values are as follows: ----- L1: 0.1 ----- L2: 1.4 ----- L3: 2.3 ----- L4: 0.5 ----- L1-L4: 1.1 Bone mineral density has: Increased 28.0% since study of: 06/03/2022 Bone mineral density about the R hip (g/cm2): 0.691 Bone mineral density about the L hip (g/cm2): 0.658 T Score values are as follows: -----R Neck: -1.9 -----L Neck: -1.8 -----R Total: -2.5 -----L Total: -2.8 Z Score values are as follows: -----R Neck: 0.6 -----L Neck: 0.7 -----R Total: -0.1 -----L Total: -0.4 Bone mineral density has: Increased 6.3% since study of: 06/03/2022 FRAX%s: The graph provided illustrates a 25.1% chance for a major osteoporotic fx and a 16.5% chance for the hips probability for fx in 10 years time. IMPRESSION: Osteoporosis (T Score less than -2.5). There is increased fracture risk and therapy is usually indicated based on age. Re-Screen 1-2 years. NOTE: T-SCORE=SD OF THE YOUNG ADULT MEAN. [facility], , 06/29/2024 5:35 PM
== END | disposition home or self-care (01) ==
LOC: RADMAMWWP 15:14
PROVIDERS: ATTEND Internal Medicine Geriatric Medicine
DX: Z12.31 Encounter for screening mammogram for malignant neoplasm of breast (principal); R92.333 Mammographic heterogeneous density, bilateral breasts; M81.0 Age-related osteoporosis without current pathological fracture; Z78.0 Asymptomatic menopausal state; Z80.3 Family history of malignant neoplasm of breast; Z90.722 Acquired absence of ovaries, bilateral
CPT/HCPCS: 77063; 77067; 77080

== ENCOUNTER → 2024-09-13 | Outpatient (CLI) | payer MEDICARE, BC ==
[2024-09-13 13:29] VITALS: BP 147/85; PULSE 74; RESP 16; TEMP 97.4
[2024-09-13] MEDS: DENOSUMAB 60 MG/ML 1 ML SYRINGE SQ NR (13:30)
== END ==
LOC: PROCWHC3 13:13
PROVIDERS: ATTEND Internal Medicine Geriatric Medicine
DX: M81.0 Age-related osteoporosis without current pathological fracture (principal)
CPT/HCPCS: 96372; J0897

== ENCOUNTER 2025-03-12 20:05 | Inpatient (IN) | payer MEDICARE, BC ==
[2025-03-12 20:23] LABS: Glucose,Whole Blood 97 mg/dL (70-110)
--- NOTE | 2025-03-12 20:34 | ED ---
Fall HPI - General Chief Complaint: Fall Stated Complaint: fall Time Seen by Provider: 03/12/25 20:12 Source: family, EMS, RN notes reviewed Mode of arrival: EMS Limitations: no limitations - History of Present Illness Initial Comments: This is an 79-year-old female who presents to the emergency department for a fall. Patient has a history of dementia but lives alone. Family checks on her daily. They last saw her normally yesterday morning. However, when they went to check on her today she was found on the ground. They are unsure when she may have fallen or what injuries she may have sustained. It is also unclear if she lost consciousness. She is not taking any blood thinners. She was initially complaining of some right hip pain. While she does have dementia, family believes that she is not acting appropriately. She is able to provide her name and say that she is at a hospital. She answers some questions appropriately and other times will just start speaking about things that are unrelated. MD Complaint: fall - Related Data Home Medications Medication Instructions Recorded Confirmed Aspirin 325 mg PO DAILY 05/05/15 09/13/24 Levothyroxine Sodium [Synthroid] 100 mcg PO DAILY 05/05/15 09/13/24 Magnesium 200 mg PO DAILY 05/16/21 09/13/24 Rosuvastatin Calcium [Crestor] 5 mg PO DAILY 05/16/21 09/13/24 Galantamine HBr [Razadyne ER] 1 tab PO DAILY 09/13/24 09/13/24 Previous Rx's Medication Instructions Recorded Acetaminophen Tab [Tylenol Tab] 650 mg PO Q4H PRN #30 tablet 05/22/21 Docusate [Colace] 100 mg PO BID cap 05/22/21 amLODIPine [Norvasc] 5 mg PO DAILY #30 tab 05/22/21 Allergies Allergy/AdvReac Type Severity Reaction Status Date / Time No Known Allergies Allergy Verified 09/13/24 13:17 Review of Systems ROS Statement: Those systems with pertinent positive or pertinent negative responses have been documented in the HPI. ROS Other: All systems not noted in ROS Statement are negative. Past Medical History Past Medical History: Dementia, Hypertension, Thyroid Disorder History of Any Multi-Drug Resistant Organisms: None Reported Past Surgical History: Breast Surgery, Hysterectomy, Orthopedic Surgery Additional Past Surgical History / Comment(s): BREAST BIOPSY, CATARACT SURGERY,BUNIONECTOMY RIGHT FOOT, Past Anesthesia/Blood Transfusion Reactions: No Reported Reaction Past Psychological History: No Psychological Hx Reported Smoking Status: Never smoker Past Alcohol Use History: Unable to Obtain Past Drug Use History: Unable to Obtain - Past Family History Mother Family Medical History: CVA/TIA, Deep Vein Thrombosis (DVT) General Exam Limitations: no limitations General appearance: alert, in no apparent distress Head exam: Present: atraumatic, normocephalic, normal inspection Eye exam: Present: normal appearance, PERRL, EOMI. Absent: scleral icterus, conjunctival injection, periorbital swelling Respiratory exam: Present: normal lung sounds bilaterally. Absent: respiratory distress, wheezes, rales, rhonchi, stridor Cardiovascular Exam: Present: regular rate, normal rhythm GI/Abdominal exam: Present: soft. Absent: distended, tenderness Neurological exam: Present: alert Skin exam: Present: warm, dry, intact, normal color. Absent: rash Course Vital Signs 03/12/25 03/12/25 20:07 22:29 Temperature 97.8 F 98.2 F Pulse Rate 82 81 Respiratory 18 18 Rate Blood Pressure 160/88 153/86 O2 Sat by Pulse 98 98 Oximetry Medical Decision Making - Medical Decision Making This is an 79-year-old female who presents to the emergency department for a fall and altered mental status. Was pt. sent in by a medical professional or institution? @ -No Did you speak to anyone other than the patient for history? @ -EMS and family provided all of the history. Did you review nursing and triage notes? @ -Yes, and I agree, it is accurate with regards to the patient's symptoms. Were old charts reviewed? @ -No Differential Diagnosis? @ -Differential Altered Mental Status: Hypoglycemia, DKA, hypercapnia, ETOH, overdose, CO poisoning, trauma, myxedema coma, HTN encephalopathy, infection, encephalitis, psychosis, intercranial hemorrhage, hepatic encephalopathy, meningitis, CVA, this is not meant to be an all-inclusive list EKG interpreted by me (3pts min.)? @ -EKG interpreted by me demonstrating the following: Sinus rhythm. Ventricular rate 87 bpm, VT interval 164 ms, QRS duration 81 ms, QTc 422 ms. X-rays interpreted by me (1pt min.)? @ -Chest x-ray obtained, my interpretation identifies no localized consolidations or infiltrates. CT interpreted by me (1pt min.)? @ -Computed tomography scan of the brain and c-spine obtained. My interpretation identifies no evidence of an acute intracranial hemorrhage, skull fracture, or cervical spine fracture. CT scan of the pelvis obtained. My interpretation identifies no fractures. U/S interpreted by me (1pt. min.)? @ -Not obtained What testing was considered but not performed? (CT, X-rays, U/S, labs)? Why? @ -None What meds were considered but not given? Why? @ -None Did you discuss the management of the patient with other professionals? @ -Yes, Dr. Chaudhry, who accepts the patient for admission Did you reconcile home meds? @ -No Was smoking cessation discussed for >3mins.? @ -No Was critical care preformed (if so, how long)? @ -No Were there social determinants of health that impacted care today? How? (Homelessness, low income, unemployed, alcoholism, drug addiction, transportation, low edu. Level, literacy, decrease access to med. care, fdc, rehab)? @ -No Was there de-escalation of care discussed even if they declined? (Discuss DNR or withdrawal of care, Hospice)? @ -No What co-morbidities impacted this encounter? (DM, HTN, Smoking, COPD, CAD, Cancer, CVA, Hep., AIDS, mental health diagnosis, sleep apnea, morbid obesity)? @ -Dementia Was patient admitted / discharged? @ -Admitted. Lab work demonstrates leukocytosis with a white blood cell count of 14.05. Creatinine kinase 884. CT scan of the brain and C-spine obtained revealing no acute findings. We did also obtain a CT scan of the pelvis and she has no signs of any fractures or other acute irregularities. There is concern about the patient's living situation and that she does live alone with dementia and is a high fall risk. Family does check on her daily, however she likely needs closer monitoring in an ECF facility. She also appears to be in an early rhabdomyolysis and will need hydration. Patient admitted to medicine for weakness, falls, and increased confusion. Consult placed for PT/OT as well as social work regarding possible ECF placement. Case discussed with ED attending Dr. Harris. Undiagnosed new problem with uncertain prognosis? @ -None Drug Therapy requiring intensive monitoring for toxicity (Heparin, Nitro, Insulin, Cardizem)? @ -None Were any procedures done? @ -None Diagnosis/symptom? @ -Falls, weakness, confusion Acute, or Chronic, or Acute on Chronic? @ -Acute Uncomplicated (without systemic symptoms) or Complicated (systemic symptoms)? @ -Complicated Side effects of treatment? @ -None Exacerbation, Progression, or Severe Exacerbation] @ -Not applicable Poses a threat to life or bodily function? @ -Yes, patient is at risk of further falls and worsening injuries. - Lab Data Result diagrams: 03/12/25 20:25 03/12/25 20:25 Lab Results 03/12/25 03/12/25 03/12/25 Range/Units 20:21 20:25 20:25 WBC 14.05 H (4.50-10.00) 10*3/uL RBC 5.10 (4.10-5.20) 10*6/uL Hgb 13.3 (12.0-15.0) g/dL Hct 40.8 (37.2-46.3) % MCV 80.0 (80.0-97.0) fL MCH 26.1 L (27.0-32.0) pg MCHC 32.6 (32.0-37.0) g/dL Plt Count 231 (140-440) 10*3/uL MPV 9.8 (9.5-12.2) fL Immature Gran % (Auto) 0.3 % Neutrophils % 88.2 % Lymphocytes % 3.9 % Monocytes % 7.3 % Eosinophils % 0.0 % Basophils % 0.3 % Immature Gran # 0.04 (0.00-0.04) 10*3/uL Neutrophils # 12.40 H (1.80-7.70) 10*3/uL Lymphocytes # 0.55 L (0.90-5.00) 10*3/uL Monocytes # 1.02 H (0.20-1.00) 10*3/uL Eosinophils # 0.00 L (0.04-0.35) 10*3/uL Basophils # 0.04 (0.00-0.10) 10*3/uL PT 11.0 (10.0-12.5) sec INR 1.0 (<1.2) APTT 22.5 (22.0-30.0) sec Sodium (137-145) mmol/L Potassium (3.5-5.1) mmol/L Chloride (98-107) mmol/L Carbon Dioxide (22-30) mmol/L Anion Gap mmol/L BUN (7-17) mg/dL Creatinine (0.52-1.04) mg/dL Est GFR (CKD-EPI)AfAm (>60 ml/min/1.73 sqM) Est GFR (CKD-EPI)NonAf (>60 ml/min/1.73 sqM) Glucose (74-99) mg/dL POC Glucose (mg/dL) 97 (70-110) mg/dL POC Glu Learning Coach ID Stefanie Lucio Plasma Lactic Acid Leodan (0.7-2.0) mmol/L Calcium (8.4-10.2) mg/dL Phosphorus (2.5-4.5) mg/dL Magnesium (1.6-2.3) mg/dL Total Bilirubin (0.2-1.3) mg/dL AST (14-36) U/L ALT (4-34) U/L Alkaline Phosphatase (38-126) U/L Creatine Kinase (30-135) U/L Troponin I (0.000-0.034) ng/mL Total Protein (6.3-8.2) g/dL Albumin (3.5-5.0) g/dL 03/12/25 03/12/25 03/12/25 Range/Units 20:25 20:25 20:25 WBC (4.50-10.00) 10*3/uL RBC (4.10-5.20) 10*6/uL Hgb (12.0-15.0) g/dL Hct (37.2-46.3) % MCV (80.0-97.0) fL MCH (27.0-32.0) pg MCHC (32.0-37.0) g/dL Plt Count (140-440) 10*3/uL MPV (9.5-12.2) fL Immature Gran % (Auto) % Neutrophils % % Lymphocytes % % Monocytes % % Eosinophils % % Basophils % % Immature Gran # (0.00-0.04) 10*3/uL Neutrophils # (1.80-7.70) 10*3/uL Lymphocytes # (0.90-5.00) 10*3/uL Monocytes # (0.20-1.00) 10*3/uL Eosinophils # (0.04-0.35) 10*3/uL Basophils # (0.00-0.10) 10*3/uL PT (10.0-12.5) sec INR (<1.2) APTT (22.0-30.0) sec Sodium 135 L (137-145) mmol/L Potassium 4.3 (3.5-5.1) mmol/L Chloride 103 (98-107) mmol/L Carbon Dioxide 21 L (22-30) mmol/L Anion Gap 11 mmol/L BUN 21 H (7-17) mg/dL Creatinine 0.55 (0.52-1.04) mg/dL Est GFR (CKD-EPI)AfAm >90 (>60 ml/min/1.73 sqM) Est GFR (CKD-EPI)NonAf 88 (>60 ml/min/1.73 sqM) Glucose 105 H (74-99) mg/dL POC Glucose (mg/dL) (70-110) mg/dL POC Glu Learning Coach ID Plasma Lactic Acid Leodan 1.4 (0.7-2.0) mmol/L Calcium 9.5 (8.4-10.2) mg/dL Phosphorus 3.0 (2.5-4.5) mg/dL Magnesium 1.9 (1.6-2.3) mg/dL Total Bilirubin 1.3 (0.2-1.3) mg/dL AST 45 H (14-36) U/L ALT 18 (4-34) U/L Alkaline Phosphatase 85 (38-126) U/L Creatine Kinase 884 H (30-135) U/L Troponin I <0.012 (0.000-0.034) ng/mL Total Protein 6.5 (6.3-8.2) g/dL Albumin 4.4 (3.5-5.0) g/dL - Radiology Data Radiology results: report reviewed, image reviewed Disposition Clinical Impression: Fall, Weakness, Confusion Disposition: ADMITTED IP TO THIS HOSP
[2025-03-12 20:39] LABS: Basophils # (A) 0.04 10*3/uL (0.00-0.10); Basophils % (A) 0.3 %; Eosinophils # (A) 0.00 10*3/uL (0.04-0.35); Eosinophils % (A) 0.0 %; HCT 40.8 % (37.2-46.3); HGB 13.3 g/dL (12.0-15.0); Lymphocytes # (A) 0.55 10*3/uL (0.90-5.00); Lymphocytes % (A) 3.9 %; MCH 26.1 pg (27.0-32.0); MCHC 32.6 g/dL (32.0-37.0); MCV 80.0 fL (80.0-97.0); Monocytes # (A) 1.02 10*3/uL (0.20-1.00); Monocytes % (A) 7.3 %; Neutrophils # (A) 12.40 10*3/uL (1.80-7.70); Neutrophils % (A) 88.2 %; Platelet Count 231 10*3/uL (140-440); RBC 5.10 10*6/uL (4.10-5.20); RDW 14.0 % (11.5-14.5); WBC 14.05 10*3/uL (4.50-10.00)
[2025-03-12 20:52] LABS: ALT 18 U/L (4-34); AST 45 U/L (14-36); African American GFR (CKD) >90 (>60 ml/min/1.73 sqM); Albumin 4.4 g/dL (3.5-5.0); Alkaline Phosphatase 85 U/L (38-126); Anion Gap 11 mmol/L; Blood Urea Nitrogen 21 mg/dL (7-17); Calcium 9.5 mg/dL (8.4-10.2); Carbon Dioxide 21 mmol/L (22-30); Chloride 103 mmol/L (98-107); Creatine Kinase 884 U/L (30-135); Glucose 105 mg/dL (74-99); Magnesium 1.9 mg/dL (1.6-2.3); Non-African American GFR(CKD) 88 (>60 ml/min/1.73 sqM); Potassium 4.3 mmol/L (3.5-5.1); Sodium 135 mmol/L (137-145); Total Protein 6.5 g/dL (6.3-8.2)
[2025-03-12] MEDS: SODIUM CHLORIDE 0.9% 1,000 ML IV ONE (20:56)
[2025-03-12 21:07] LABS: INR 1.0 (<1.2); Partial Thromboplastin Time 22.5 sec (22.0-30.0); Prothrombin Time 11.0 sec (10.0-12.5)
--- NOTE | 2025-03-12 21:08 | CT ---
EXAMINATION TYPE: CT brain cspine wo con CT DLP: 1230.8 mGycm, Automated exposure control for dose reduction was used. DATE OF EXAM: 03/12/2025 8:54 PM COMPARISON: CT brain C-spine 06/12/2023. CLINICAL INDICATION:Female, 79 years old with history of Fall; fell, pain TECHNIQUE: Brain: Multiple axial CT images of the brain were obtained without IV contrast. Cspine: Axial CT images from the skull base to the inferior aspect of T2 we obtained without intraven ous contrast. Coronal and sagittal reformatted images were also reviewed. FINDINGS: Brain: Extra-axial spaces: No abnormal extra-axial fluid collections. Ventricular system: Dilatation in proportion to cerebral atrophy. Cerebral parenchyma: Cerebral atrophy. No acute intraparenchymal hemorrhage or mass effect. The wiseman -white junction is well differentiated. Partial empty sella. Delvin cisterna magna. Cerebellum: Unremarkable. Mass effect: No evidence of midline shift. Intracranial vasculature: Atherosclerotic calcifications of the intracranial vessels. Soft tissues: Normal. Calvarium/osseous structures: No depressed skull fracture. Paranasal sinuses and mastoid air cells: Clear. Visualized orbits: Bilateral aphakia Cervical spine: Fracture: None. Osseous structures: Multilevel disc space narrowing with endplate sclerosis. Severe degenerative baker ges of the bilateral TMJs. Degenerative changes of the C1 dens articulation. Vertebral alignment: Degenerative grade 1 anterolisthesis of C3 on C4 with degenerative grade 1 retro listhesis of C5 on C6. Spinal canal/Neural Foramina: No evidence of significant spinal canal narrowing. Facet joint uncovert ebral joint arthropathy scattered throughout the cervical spine with varying degrees of neural forami nal stenosis. Neck soft tissues: Prevertebral soft tissues are within normal limits. Other: The airway is patent. The lung apices are clear. IMPRESSION: 1. No acute intracranial process. 2. No evidence of cervical spine fracture. 3. Mild multilevel degenerative disc disease. [facility], , 03/12/2025 9:06 PM
--- NOTE | 2025-03-12 21:19 | CT ---
EXAMINATION TYPE: CT pelvis wo con CT DLP: 254.8 mGycm, Automated exposure control for dose reduction was used. DATE OF EXAM: 03/12/2025 8:54 PM COMPARISON: None CLINICAL INDICATION:Female, 79 years old with history of Right hip pain after fall; fell TECHNIQUE: Standard CT of the pelvis without IV or oral contrast. Lack of IV or oral contrast limit s evaluation of solid and hollow organ viscera. Coronal and sagittal reformats were performed. FINDINGS: BLADDER: Unremarkable REPRODUCTIVE: The uterus is surgically absent. BOWEL: No visualized evidence for bowel obstruction. Sigmoid diverticulosis without evidence for acut e diverticulitis. 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 No evidence of bowel obstruction. PERITONEUM: No evidence of pneumoperitoneum or free fluid. VASCULATURE: Vascular calcification. Pelvic phleboliths. MUSCULOSKELETAL: No acute osseous abnormalities. Diffuse bone demineralization. Degenerative changes of the pubic symphysis. Both SI joints appear intact. Grade 1 anterolisthesis of L4-L5 without eviden ce of pars defects. Degenerative disc disease of the visualized lumbar spine. LYMPH NODES: No gross evidence for lymphadenopathy. SOFT TISSUE/ABDOMINAL WALL: Unremarkable IMPRESSION: 1. No acute traumatic process within the pelvis. No evidence for a fracture. 2. 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 3. Sigmoid diverticulosis without evidence for acute diverticulitis. [facility], , 03/12/2025 9:16 PM
--- NOTE | 2025-03-12 21:34 | XR ---
EXAMINATION TYPE: XR chest 2V DATE OF EXAM: 03/12/2025 9:26 PM COMPARISON: Chest radiographs from 09/10/2017 TECHNIQUE: XR chest 2V Frontal and lateral views of the chest. CLINICAL INDICATION:Female, 79 years old with history of Fall; pain FINDINGS: Lungs/Pleura: There is no evidence of pleural effusion, focal consolidation, or pneumothorax. Eventr ation of the right hemidiaphragm. Pulmonary vascularity: Unremarkable. Heart/mediastinum: Cardiomediastinal silhouette is prominent in size. Musculoskeletal: No acute osseous pathology. Bilateral shoulder arthropathy. IMPRESSION: No acute cardiopulmonary disease/process. [facility], , 03/12/2025 9:31 PM
[2025-03-12] MEDS ORDERED: ACETAMINOPHEN TAB 325 MG TAB PO PRN (21:46)
[2025-03-12] MEDS ORDERED: NALOXONE 0.4 MG/ML 1 ML VIAL IV PRN (21:46)
[2025-03-12] MEDS ORDERED: ONDANSETRON 4 MG/2 ML VIAL IVP PRN (21:46)
[2025-03-12] MEDS ORDERED: MORPHINE SULFATE 4 MG/ML SYRINGE IV PRN (21:46)
[2025-03-12] MEDS ORDERED: HYDROcodone/APAP 5-325MG 1 EACH TAB PO PRN (21:46)
[2025-03-12 23:15] LABS: Amorphous Sediment,Urine Rare /hpf; Bilirubin,Urine Negative (Negative); Blood,Urine Trace (Negative); Color,Urine Colorless; Glucose,Urine (UA) Negative (Negative); Hyaline Casts,Urine 1 /lpf (0-2); Ketones,Urine 2+ (Negative); Leukocyte Esterase,Urine Trace (Negative); Nitrite,Urine Negative (Negative); PH, Urine 6.5 (5.0-8.0); Protein,Urine Negative (Negative); RBC,Urine 4 /hpf (0-5); Specific Gravity,Urine 1.015 (1.001-1.035); Squamous Epithelial Cell,Urine 2 /hpf (0-4); Urobilinogen,Urine <2.0 mg/dL (<2.0); WBC,Urine 7 /hpf (0-5)
[2025-03-12] MEDS: SODIUM CHLORIDE 0.9% 1,000 ML IV SCH (23:23)
[2025-03-13] MEDS: PANTOPRAZOLE 40 MG/10 ML VIAL IV SCH (08:20)
[2025-03-13] MEDS ORDERED: DOCUSATE 100 MG CAP PO PRN (11:09)
[2025-03-13] MEDS ORDERED: QUEtiapine 25 MG TAB PO PRN (11:59)
[2025-03-13] MEDS: DONEPEZIL 10 MG TAB PO SCH (12:00)
--- NOTE | 2025-03-13 12:56 | P.HPIM ---
History of Present Illness Chief Complaint: Fall History of presenting complaint: An 79-year-old female with a background of dementia, hypertension, thyroid disease, presents to the ER post fall. Patient lives alone, however frequently visited by family on a daily basis. Patient's baseline is concerning of confusion due to her dementia. Patient's family report patient as being well yesterday morning. However when visiting her this morning they found her on the ground. Patient does not remember how she fell and does not note sustaining any injuries. Patient unsure of losing consciousness prior to the fall as she cannot recall the events. Patient unsure of the duration she had been on the ground for post fall. Patient denies being on any blood thinners. Patient denies chest pain, shortness of breath and lightheadedness, post fall. At time of evaluation, patient alert and oriented x 2, notes current year as 1946. In ER, lab work significant for WBC 14.05, sodium 135, creatinine 0.55, glucose 105, AST 45, ALT 18, creatinine kinase 884. Urinalysis positive for trace of blood, white blood cells, 2+ ketones. Chest x-ray obtained ruling out acute cardiopulmonary disease/process. A CT brain and spine obtained ruled out acute intracranial processes, and cervical spine fractures. Mild multilevel degenerative disc disease however was evident. 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 No acute traumatic processes within the pelvic evident. Furthermore an EKG obtained independently reported as sinus with possible left atrial enlargement. REVIEW OF SYSTEMS: As stated above in HPI. The rest of the 14-point review of systems is negative. PHYSICAL EXAMINATION: GENERAL: The patient is alert and oriented x2. Reports current year as 1946. HEENT: Pupils are round and equally reacting to light. EOMI. No scleral icterus. No conjunctival pallor. Normocephalic, atraumatic. CARDIOVASCULAR: S1 and S2 present. PULMONARY: Chest is clear to auscultation b/l. ABDOMEN: Soft, nontender, nondistended, normoactive bowel sounds. No palpable organomegaly. MUSCULOSKELETAL: No joint swelling or deformity. EXTREMITIES: No pedal edema. NEUROLOGICAL: Gross neurological examination did not reveal any focal deficits. Alert and oriented x2. SKIN: No rashes. Assessment and Plan: #Fall - Monitor vitals - Monitor for orthostatic hypotension - PT/OT to assess for home help or facility care post discharge Chronic conditions: #Dementia - Continue Memantine - Continue Donepezil - Start Seroquel 12.5mg PRN at night time #Hypertension - Continue amlodipine - monitor blood pressure #Hypothyroidism - Continue Levothyroxine - Monitor TSH F: Normal saline. E: None N:Regular DVT ppx: SCD's GI ppx: Protonix CODE STATUS: Full Dictation was produced using [email or web address] dictation software. please excuse any grammatical, word or spelling errors. Olivier Evangelista MD PGY1 Internal Medicine Past Medical History Past Medical History: Dementia, Hypertension, Thyroid Disorder History of Any Multi-Drug Resistant Organisms: None Reported Past Surgical History: Breast Surgery, Hysterectomy, Orthopedic Surgery Additional Past Surgical History / Comment(s): BREAST BIOPSY, CATARACT SURGERY,BUNIONECTOMY RIGHT FOOT, Past Anesthesia/Blood Transfusion Reactions: No Reported Reaction Past Psychological History: No Psychological Hx Reported Smoking Status: Never smoker Past Alcohol Use History: Unable to Obtain Past Drug Use History: Unable to Obtain - Past Family History Mother Family Medical History: CVA/TIA, Deep Vein Thrombosis (DVT) Medications and Allergies Home Medications Medication Instructions Recorded Confirmed Type Aspirin 325 mg PO DAILY 05/05/15 09/13/24 History Levothyroxine Sodium [Synthroid] 100 mcg PO DAILY 05/05/15 03/13/25 History Magnesium 200 mg PO DAILY 05/16/21 03/13/25 History Rosuvastatin Calcium [Crestor] 5 mg PO DAILY 05/16/21 03/13/25 History Acetaminophen Tab [Tylenol Tab] 650 mg PO Q4H PRN #30 tablet 05/22/21 03/13/25 Rx amLODIPine [Norvasc] 5 mg PO DAILY #30 tab 05/22/21 03/13/25 Rx Galantamine HBr [Razadyne ER] 1 tab PO DAILY 09/13/24 03/13/25 History Docusate [Colace] 100 mg PO BID PRN 03/13/25 03/13/25 History Memantine [Namenda] 10 mg PO BID 03/13/25 03/13/25 History Sertraline [Zoloft] 1 tablet PO HS 03/13/25 03/13/25 History Allergies Allergy/AdvReac Type Severity Reaction Status Date / Time No Known Allergies Allergy Verified 09/13/24 13:17 Physical Exam Vitals: Vital Signs Temp Pulse Pulse Resp BP BP Pulse Ox 03/13/25 07:05 98.5 F 76 16 146/81 97 03/13/25 04:09 97.7 F 03/13/25 02:52 138/72 03/13/25 02:04 99.5 F 65 14 145/103 97 03/12/25 22:49 97.5 F L 78 15 146/81 99 03/12/25 22:29 98.2 F 81 18 153/86 98 03/12/25 20:07 97.8 F 82 18 160/88 98 Intake and Output 03/12/25 03/13/25 03/13/25 22:59 06:59 14:59 Intake Total 1050 Output Total 102 Balance 948 Intake: Intake, IV Titration 600 Amount Sodium Chloride 0.9% 1, 600 000 ml @ 50 mls/hr IV . Q20H [facility] Rx#:[id number] Oral 450 Output: Urine 100 Stool 2 Other: Voiding Method External Catheter # Voids 1 # Bowel Movements 1 1 1 Weight 61.235 kg Results CBC & Chem 7: 03/12/25 20:25 03/12/25 20:25 Labs: Abnormal Lab Results - Last 24 Hours (Table) 03/12/25 03/12/25 03/12/25 Range/Units 20:25 20:25 22:38 WBC 14.05 H (4.50-10.00) 10*3/uL MCH 26.1 L (27.0-32.0) pg Neutrophils # 12.40 H (1.80-7.70) 10*3/uL Lymphocytes # 0.55 L (0.90-5.00) 10*3/uL Monocytes # 1.02 H (0.20-1.00) 10*3/uL Eosinophils # 0.00 L (0.04-0.35) 10*3/uL Sodium 135 L (137-145) mmol/L Carbon Dioxide 21 L (22-30) mmol/L BUN 21 H (7-17) mg/dL Glucose 105 H (74-99) mg/dL AST 45 H (14-36) U/L Creatine Kinase 884 H (30-135) U/L Urine Ketones 2+ H (Negative) Urine Blood Trace H (Negative) Ur Leukocyte Esterase Trace H (Negative) Urine WBC 7 H (0-5) /hpf Amorphous Sediment Rare H (None) /hpf Thrombosis Risk Factor Assmnt - Choose All That Apply Any of the Below Risk Factors Present?: No Other Risk Factors: Yes Each Risk Factor Represents 3 Points: Age 75 years or older Other congenital or acquired thrombophilia - If yes, enter type in comment: No Thrombosis Risk Factor Assessment Total Risk Factor Score: 3 Thrombosis Risk Factor Assessment Level: Moderate Risk
[2025-03-13] MEDS: SERTRALINE 25 MG TAB PO SCH (21:03)
[2025-03-13] MEDS: MEMANTINE 10 MG TAB PO SCH (21:03)
[2025-03-14 04:11] LABS: Basophils # (A) 0.04 10*3/uL (0.00-0.10); Basophils % (A) 0.5 %; Eosinophils # (A) 0.08 10*3/uL (0.04-0.35); Eosinophils % (A) 1.0 %; HCT 34.5 % (37.2-46.3); HGB 10.7 g/dL (12.0-15.0); Lymphocytes # (A) 1.40 10*3/uL (0.90-5.00); Lymphocytes % (A) 18.2 %; MCH 25.3 pg (27.0-32.0); MCHC 31.0 g/dL (32.0-37.0); MCV 81.6 fL (80.0-97.0); Monocytes # (A) 0.71 10*3/uL (0.20-1.00); Monocytes % (A) 9.2 %; Neutrophils # (A) 5.45 10*3/uL (1.80-7.70); Neutrophils % (A) 70.7 %; Platelet Count 166 10*3/uL (140-440); RBC 4.23 10*6/uL (4.10-5.20); RDW 14.6 % (11.5-14.5); WBC 7.71 10*3/uL (4.50-10.00)
[2025-03-14 04:43] LABS: ALT 14 U/L (4-34); AST 29 U/L (14-36); African American GFR (CKD) >90 (>60 ml/min/1.73 sqM); Albumin 2.9 g/dL (3.5-5.0); Albumin/Globulin Ratio 1.5; Alkaline Phosphatase 58 U/L (38-126); Anion Gap 4 mmol/L; Blood Urea Nitrogen 23 mg/dL (7-17); Calcium 8.7 mg/dL (8.4-10.2); Carbon Dioxide 25 mmol/L (22-30); Chloride 107 mmol/L (98-107); Globulin 1.9 g/dL; Glucose 96 mg/dL (74-99); Non-African American GFR(CKD) 85 (>60 ml/min/1.73 sqM); Potassium 3.9 mmol/L (3.5-5.1); Sodium 136 mmol/L (137-145); Total Protein 4.8 g/dL (6.3-8.2)
[2025-03-14] MEDS: LEVOTHYROXINE 100 MCG TAB PO SCH (06:32)
[2025-03-14] MEDS: amLODIPine 5 MG TAB PO SCH (08:34)
[2025-03-14] MEDS: MAGNESIUM OXIDE 400 MG TAB PO SCH (08:34)
[2025-03-14] MEDS: ATORVASTATIN 10 MG TAB PO SCH (08:34)
[2025-03-14] MEDS: ACETAMINOPHEN TAB 325 MG TAB PO PRN (14:25)
--- NOTE | 2025-03-14 18:15 | P.PN ---
Subjective Subjective: An 79-year-old female with a background of dementia, hypertension, thyroid disease, presents to the ER post fall. Patient lives alone, however frequently visited by family on a daily basis. Patient's baseline is concerning of confusion due to her dementia. Patient's family report patient as being well yesterday morning. However when visiting her this morning they found her on the ground. Patient does not remember how she fell and does not note sustaining any injuries. Patient unsure of losing consciousness prior to the fall as she cannot recall the events. Patient unsure of the duration she had been on the ground for post fall. Patient denies being on any blood thinners. Patient denies chest pain, shortness of breath and lightheadedness, post fall. At time of evaluation, patient alert and oriented x 2, notes current year as 1946. In ER, lab work significant for WBC 14.05, sodium 135, creatinine 0.55, glucose 105, AST 45, ALT 18, creatinine kinase 884. Urinalysis positive for trace of blood, white blood cells, 2+ ketones. Chest x-ray obtained ruling out acute cardiopulmonary disease/process. A CT brain and spine obtained ruled out acute intracranial processes, and cervical spine fractures. Mild multilevel degenerative disc disease however was evident. 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 No acute traumatic processes within the pelvic evident. Furthermore an EKG obtained independently reported as sinus with possible left atrial enlargement. 03/14: Patient seen at bedside. No significant overnight events. Alert and oriented x 1, does not know where she is and what year it is. Vitally stable. Pertinent positives and negatives discussed above, a complete review of systems was preformed and all the other systems were negative. Vitals Signs Reviewed. GENERAL: The patient is alert and oriented x2. Reports current year as 1946. HEENT: Pupils are round and equally reacting to light. EOMI. No scleral icterus. No conjunctival pallor. Normocephalic, atraumatic. CARDIOVASCULAR: S1 and S2 present. PULMONARY: Chest is clear to auscultation b/l. ABDOMEN: Soft, nontender, nondistended, normoactive bowel sounds. No palpable organomegaly. MUSCULOSKELETAL: No joint swelling or deformity. EXTREMITIES: No pedal edema. NEUROLOGICAL: Gross neurological examination did not reveal any focal deficits. Alert and oriented x2. SKIN: No rashes. Data Reviewed Today: 03/14/2025 Patient Labs: WBC 7.71, sodium 136, hemoglobin 10.7, potassium 3.9, magnesium 1.9, creatinine 0.61. Imaging: No new imaging. Assesment and Plan: #Fall - Monitor vitals - Monitor for orthostatic hypotension - PT/OT to assess for home help or facility care post discharge Chronic conditions: #Dementia, fall risk - Continue Memantine - Continue Donepezil - Start Seroquel 12.5mg PRN at night time - PT/OT for discharge planning as patient lives alone. #Hypertension - Continue amlodipine - monitor blood pressure #Hypothyroidism - Continue Levothyroxine - Monitor TSH F: Normal saline. E: None N:Regular DVT ppx: SCD's GI ppx: Protonix CODE STATUS: Full Objective - Vital Signs Vital signs: Vital Signs Temp 97.3 F L 03/14/25 14:00 Pulse 63 03/14/25 14:00 Resp 16 03/14/25 14:00 BP 103/65 03/14/25 14:00 Pulse Ox 96 03/14/25 14:00 FiO2 Intake & Output 03/13/25 03/14/25 03/14/25 18:59 06:59 18:59 Intake Total 600 200 Balance 600 200 Intake: Intake, IV Titration 600 Amount Sodium Chloride 0.9% 1, 600 000 ml @ 50 mls/hr IV . Q20H [facility] Rx#:[id number] Oral 200 Other: Voiding Method Toilet # Voids 1 3 5 # Bowel Movements 1 1 - Labs CBC & Chem 7: 03/14/25 03:21 03/14/25 03:21 Labs: Abnormal Lab Results - Last 24 Hours (Table) 03/14/25 03/14/25 Range/Units 03:21 03:21 Hgb 10.7 L (12.0-15.0) g/dL Hct 34.5 L (37.2-46.3) % MCH 25.3 L (27.0-32.0) pg MCHC 31.0 L (32.0-37.0) g/dL RDW 14.6 H (11.5-14.5) % Sodium 136 L (137-145) mmol/L BUN 23 H (7-17) mg/dL Total Protein 4.8 L (6.3-8.2) g/dL Albumin 2.9 L (3.5-5.0) g/dL
[2025-03-15 04:10] LABS: Basophils # (A) 0.04 10*3/uL (0.00-0.10); Basophils % (A) 0.6 %; Eosinophils # (A) 0.18 10*3/uL (0.04-0.35); Eosinophils % (A) 2.8 %; HCT 32.9 % (37.2-46.3); HGB 10.4 g/dL (12.0-15.0); Lymphocytes # (A) 1.69 10*3/uL (0.90-5.00); Lymphocytes % (A) 26.4 %; MCH 25.9 pg (27.0-32.0); MCHC 31.6 g/dL (32.0-37.0); MCV 81.8 fL (80.0-97.0); Monocytes # (A) 0.61 10*3/uL (0.20-1.00); Monocytes % (A) 9.5 %; Neutrophils # (A) 3.87 10*3/uL (1.80-7.70); Neutrophils % (A) 60.4 %; Platelet Count 142 10*3/uL (140-440); RBC 4.02 10*6/uL (4.10-5.20); RDW 14.6 % (11.5-14.5); WBC 6.41 10*3/uL (4.50-10.00)
[2025-03-15 04:28] LABS: ALT 13 U/L (4-34); AST 24 U/L (14-36); African American GFR (CKD) 90 (>60 ml/min/1.73 sqM); Albumin 2.7 g/dL (3.5-5.0); Albumin/Globulin Ratio 1.4; Alkaline Phosphatase 49 U/L (38-126); Anion Gap 5 mmol/L; Blood Urea Nitrogen 19 mg/dL (7-17); Calcium 8.8 mg/dL (8.4-10.2); Carbon Dioxide 24 mmol/L (22-30); Chloride 109 mmol/L (98-107); Globulin 1.9 g/dL; Glucose 86 mg/dL (74-99); Non-African American GFR(CKD) 78 (>60 ml/min/1.73 sqM); Potassium 3.8 mmol/L (3.5-5.1); Sodium 138 mmol/L (137-145); Total Protein 4.6 g/dL (6.3-8.2)
[2025-03-15 06:03] LABS: Glucose,Whole Blood 93 mg/dL (70-110)
[2025-03-15 08:18] VITALS: BP 156/82; PULSE 65; RESP 14; TEMP 98
--- NOTE | 2025-03-15 13:30 | P.DS ---
Providers Date of admission: 03/14/25 09:11 Attending physician: Richard Shahid Primary care physician: Denzel Anderson Hospital Course: Discharge Diagnosis: Fall Hospital Course: An 79-year-old female with a background of dementia, hypertension, thyroid disease, presents to the ER post fall. Patient lives alone, however frequently visited by family on a daily basis. Patient alert and oriented x1 due to her dementia, at baseline. Patient's family report patient as being well yesterday morning. However when visiting her this morning they found her on the ground. Patient does not remember how she fell and does not note sustaining any injuries. Patient unsure of losing consciousness prior to the fall as she cannot recall the events. Patient unsure of the duration she had been on the ground for post fall. Patient denies being on any blood thinners. Patient denies chest pain, shortness of breath and lightheadedness, post fall. At time of evaluation, patient alert and oriented x 2, notes current year as 1946. In ER, lab work significant for WBC 14.05, sodium 135, creatinine 0.55, glucose 105, AST 45, ALT 18, creatinine kinase 884. Urinalysis positive for trace of blood, white blood cells, 2+ ketones. Chest x-ray obtained ruling out acute cardiopulmonary disease/process. A CT brain and spine obtained ruled out acute intracranial processes, and cervical spine fractures. Mild multilevel degenerative disc disease however was evident. 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 No acute traumatic processes within the pelvic evident. Furthermore an EKG obtained independently reported as sinus with possible left atrial enlargement. During the course of her hospital stay, patient was followed up and monitored by the General Medicine team. The patient's medications were thoroughly reviewed and optimized with a focus on minimizing polypharmacy and reducing fall risk. Patient was also started on Seroquel as needed to manage behavioral symptoms at night. Her blood pressure was closely monitored throughout the stay and remained within acceptable limits. Patient was assessed by physiotherapy for mobilization needs and was found to be functionally independent, not requiring assistance with mobility at home. However, due to patient's baseline cognitive status (alert and oriented to person only) and diagnosis of dementia, 24/7 supervision was strongly advised for safety. The patient's family is supportive and involved in the care plan. Given that the patient does not meet criteria for inpatient physiotherapy rehabilitation, the family is aware with the recommendations for 24/03 supervision at home. Additional home support services have been arranged to assist following discharge. At time of discharge, patient is hemodynamically stable. Advised to follow-up with PCP for monitoring and to consider the need for initiating Seroquel as outpatient. Pt seen and examined at bedside: 03/15/2025 Vital signs reviewed and stable: GENERAL: The patient is alert and oriented x2. Reports current year as 1946. HEENT: Pupils are round and equally reacting to light. EOMI. No scleral icterus. No conjunctival pallor. Normocephalic, atraumatic. CARDIOVASCULAR: S1 and S2 present. PULMONARY: Chest is clear to auscultation b/l. ABDOMEN: Soft, nontender, nondistended, normoactive bowel sounds. No palpable organomegaly. MUSCULOSKELETAL: No joint swelling or deformity. EXTREMITIES: No pedal edema. NEUROLOGICAL: Gross neurological examination did not reveal any focal deficits. Alert and oriented x1. SKIN: No rashes. A total of rater than 30 minutes were spent preparing this complex discharge summary. Patient was discharged on 03/15/2025 Plan - Discharge Summary Discharge Rx Participant: Yes New Discharge Prescriptions: Continue Levothyroxine Sodium [Synthroid] 100 mcg PO DAILY Rosuvastatin Calcium [Crestor] 5 mg PO HS amLODIPine [Norvasc] 5 mg PO DAILY #30 tab Galantamine HBr [Razadyne ER] 24 mg PO DAILY Sertraline [Zoloft] 25 mg PO HS Memantine [Namenda] 10 mg PO BID Magnesium 200 mg PO DAILY Acetaminophen Tab [Tylenol] 650 mg PO Q4H PRN #30 tablet PRN Reason: Pain Docusate [Colace] 100 mg PO BID PRN PRN Reason: Constipation Discharge Medication List Levothyroxine Sodium [Synthroid] 100 mcg PO DAILY 05/05/15 [History] Magnesium 200 mg PO DAILY 05/16/21 [History] Rosuvastatin Calcium [Crestor] 5 mg PO HS 05/16/21 [History] Acetaminophen Tab [Tylenol] 650 mg PO Q4H PRN #30 tablet 05/22/21 [Rx] amLODIPine [Norvasc] 5 mg PO DAILY #30 tab 05/22/21 [Rx] Galantamine HBr [Razadyne ER] 24 mg PO DAILY 09/13/24 [History] Docusate [Colace] 100 mg PO BID PRN 03/13/25 [History] Memantine [Namenda] 10 mg PO BID 03/13/25 [History] Sertraline [Zoloft] 25 mg PO HS 03/13/25 [History] Follow up Appointment(s)/Referral(s): Denzel Anderson MD [STAFF PHYSICIAN] - 1-2 Days (office not answering please call to schedule appointment ) [facility], [NON-STAFF] - As Needed ([facility] will call you to schedule your in home nursing and aide visits. ) Patient Instructions/Handouts: Dementia (GEN), Fall Prevention for Older Adults (DC) Discharge/Stand Alone Forms: Help In The Home Discharge Disposition: HOME SELF-CARE
--- NOTE | 2025-03-17 08:29 | CDI ---
Documentation Clarification Form Date: 03/17/2025 From: Stephanie Ardon Admit Date: 03/14/2025 09:11:00 AM Patient Name: Zoie Sheppard Visit Number: [id number] Discharge Date: 03/15/2025 02:38:00 PM ATTENTION: The Clinical Documentation Specialists (CDI) and [facility] Coding Staff appreciate your assistance in clarifying documentation. Please respond to the clarification below the line at the bottom and electronically sign. The CDI & [facility] Coding staff will review the response and follow-up if needed. Please note: Queries are made part of the Legal Health Record. If you have any questions, please contact the author of this message via ITS. Doctor/Provider: Stefany Covarrubias The patients principal diagnosis the diagnosis that was chiefly responsible for the admission - has not been clearly identified and clarification is requested. The patient presented following a fall at home with no apparent injuries. History/Risk factors: HTN, dementia, hypothyroid Clinical Indicators: Lab findings: Elevated WBC 14.05, Low sodium 135. Low albumin 2.7, low hemoglobin 10.4 Radiology findings: negative for fracture or intracranial process. Multilevel DDD Vital Signs: 97.8 -99.5, 82, 18, 160/88, 98% RA EKG - Sinus with possible left atrial enlargement Treatment: Monitored by General Medicine. Medications reviewed on minimizing polypharmacy and reducing fall risk. Started on Seroquel to manage behavioral symptoms at night. BP monitored. Due to baseline cognitive status and dementia 24/03 supervision was strongly advised for safety. Home support services arranged. Consults: No consults In your professional opinion, can you please clarify which diagnosis, after study, was the reason chiefly responsible for the admission? [x ] Dementia [ ] Other, please specify [ ] Unable to determine MTDD
== END 2025-03-15 14:38 | disposition home or self-care (01) | DRG 884 ==
LOC: EC 20:05 → 4SSUR 21:47 → OBSVTOIN 03-14 09:11
PROVIDERS: ADMIT Hospitalist; ATTEND Hospitalist
DX: F03.90 Unspecified dementia, unspecified severity, without behavioral disturbance, psychotic disturbance, mood disturbance, and anxiety (principal); E03.9 Hypothyroidism, unspecified; I10 Essential (primary) hypertension; K57.30 Diverticulosis of large intestine without perforation or abscess without bleeding; Z79.82 Long term (current) use of aspirin; Z79.890 Hormone replacement therapy; Z79.899 Other long term (current) drug therapy; Z91.81 History of falling; Z60.2 Problems related to living alone
CPT/HCPCS: 36415; 70450; 71046; 72125; 72192; 80053; 81001; 82550; 83605; 83735; 84100; 84484; 85025; 85610; 85730; 96360; 99285

== ENCOUNTER → 2025-03-21 | Outpatient (CLI) | payer MEDICARE, BC ==
[2025-03-21 14:12] VITALS: BP 118/75; PULSE 71; RESP 15; TEMP 98
[2025-03-21] MEDS: DENOSUMAB 60 MG/ML 1 ML SYRINGE SQ NR (14:13)
== END ==
LOC: PROCWHC3 14:02
PROVIDERS: ATTEND Internal Medicine Geriatric Medicine
DX: M81.0 Age-related osteoporosis without current pathological fracture (principal)
CPT/HCPCS: 96372; J0897